=== PATIENT | male | born 1940 | race Caucasian/White ===

== ENCOUNTER → 2020-11-10 09:04 | Outpatient (CLI) | payer OTHER, SELFPAY ==
[2020-11-10 10:36] LABS: BUN Creatinine Ratio 21.7 (6-22); Blood Urea Nitrogen 31 mg/dL (9-20); Calcium 9.9 mg/dL (8.4-10.2); Carbon Dioxide 35 mmol/L (22-32); Chloride 101 mmol/L (98-107); Estimated Glomerular Filt Rate 47.6 mL/min (>60); Glucose 96 mg/dL (80-110); HEMOLYSIS < 15 (0-50); Potassium 4.7 mmol/L (3.4-5.1); Sodium 137 mmol/L (137-145)
[2020-11-10 10:39] LABS: NT-proBNP (BNP-Adult 18+) 3320 pg/mL (<450)
== END ==
PROVIDERS: Referring Provider Internal Medicine Cardiovascular Disease; Visit Provider Internal Medicine Cardiovascular Disease
DX: R06.02 Shortness of breath (principal); Z79.899 Other long term (current) drug therapy; I48.91 Unspecified atrial fibrillation
CPT/HCPCS: 36415; 80048; 83880

== ENCOUNTER → 2021-01-26 15:58 | Outpatient (CLI) | payer MEDICARE, SELFPAY ==
--- NOTE | 2021-01-26 | DI.ECHO.S_ITS ---
[place] +---------+ [facility] +---------+ : : [address] : : : : [address] : : : : Phone: [phone]+ Echocardiogram Report + + :Name: DALIA ORDONEZ Study Date: 01/26/2021 Height: 70 in : :[facility] ReadingLocation: Weight: 180 lb : : Gender: Male BSA: 2.0 m2 : :: 1940 Age: 80 yrs BP: 167/88 mmHg: :Reason For Study: ATRIAL FIBRILLATION : :Ordering Physician: DARIA, : :ANGEL Performed By: Carmela Srivastava : :Referring: ANGEL HUFF : + + Interpretation Summary Mild concentric left ventricular hypertrophy with ejection fraction 55-60%. Severe biatrial enlargement. Mild aortic valve sclerosis. Mild to moderate aortic regurgitation. Mild to moderate mitral regurgitation. Moderate to severe tricuspid regurgitation. The right ventricular systolic pressure is estimated to be at least 91 mmHg based on an estimated right atrial pressure of 15 mm Hg. Severe pulmonary hypertension. Mildly enlarged ascending aorta. Procedure: A two-dimensional transthoracic echocardiogram with color flow and Doppler was performed. The study quality was technically adequate. There is no prior echocardiogram noted for this patient. The heart rate ranged between 55-72 bpm during the study. Left Ventricle: The left ventricle is normal in size. There is mild concentric left ventricular hypertrophy. The ejection fraction is estimated to be 55-60%. There are no focal wall motion abnormalities. Diastolic function could not be accurately assessed due to confounding valvular disease. Right Ventricle: The right ventricle is normal in size and function. Atria: There is severe biatrial enlargement. There is no Doppler evidence for an interatrial shunt. Mitral Valve: Flail mitral valve chorde. The mitral valve leaflets appear borderline thickened, but open well. There is mild to moderate mitral regurgitation. Aortic Valve: The aortic valve is trileaflet. There is mild aortic valve sclerosis. The aortic valve is slightly calcified. There is no aortic valve stenosis. There is mild to moderate aortic regurgitation. Tricuspid Valve: The tricuspid valve leaflets are thin and pliable. There is moderate to severe tricuspid regurgitation. The right ventricular systolic pressure is estimated to be at least 91 mmHg based on an estimated right atrial pressure of 15 mm Hg. There is severe pulmonary hypertension. Pulmonic Valve: The pulmonic valve leaflets are thin and pliable; valve motion is normal. There is mild pulmonic regurgitation. Great Vessels: The aortic root is normal size. The ascending aorta is mildly enlarged. The IVC is dilated (diameter is greater than 2.1 cm) yet it collapses greater than 50% with a sniff. This suggests a right atrial pressure of 8 mm Hg. Pericardium/ Pleura There is no pericardial effusion. There is no pleural effusion. MMode/2D Measurements & Calculations LVIDd: 5.6 cm LVOT diam: 2.3 cm LVIDs: 4.1 cm Ao root diam: 3.6 cm FS: 26.6 % asc Aorta Diam: 3.6 cm IVSd: 1.3 cm Ao Arch Diam (Prox Trans): 2.4 cm LVPWd: 1.2 cm LV ugarte. diameter/BSA (cm/m^2): 2.8 LV sys. diameter/BSA (cm/m^2): 2.1 LA A2 area: 30.3 cm2 RA long axis: 6.7 cm LA A4 area: 33.4 cm2 RA area: 30.3 cm2 LA length (vol): 6.9 cm RA vol: 115.8 ml LA vol: 125.2 ml RA : 58.0 ml/m2 LA vol index: 62.8 ml/m2 IVC diam: 2.3 cm RVD1 (basal): 3.9 cm TAPSE: 1.9 cm Doppler Measurements & Calculations Ao V2 max: 144.7 cm/sec LVOT Max Yfn: 82.2 cm/sec Ao V2 mean: 97.1 cm/sec LV V1 max P.7 mmHg Ao max P.4 mmHg LV V1 VTI: 19.6 cm Ao mean P.3 mmHg SCOOTER(I,D): 2.5 cm2 Ao V2 VTI: 33.6 cm SCOOTER(V,D): 2.4 cm2 sev ratio: 0.58 SCOOTER indexed to BSA (cm^2/m^2): 1.2 AI P1/2t: 486.0 msec AI dec slope: 235.3 cm/sec2 MV E max yfn: 120.3 cm/sec TR max yfn: 436.2 cm/sec MV A max yfn: 1.6 cm/sec TR max P.1 mmHg MV E/A: 75.7 PA pr(Accel): 48.2 mmHg Med Peak E' Yfn: 6.3 cm/sec E/E' med: 19.0 Lat Peak E' Yfn: 8.6 cm/sec E/E' lat: 14.0 E/e' average: 16.5 MV dec time: 0.18 sec [facility] 82.8 ml Electronically signed by: Aixa Washburn on Reading Physician:01/27/2021 12:25 PM
== END ==
PROVIDERS: PCP Family Medicine; Referring Provider Internal Medicine Cardiovascular Disease; Visit Provider Internal Medicine Cardiovascular Disease
DX: I08.3 Combined rheumatic disorders of mitral, aortic and tricuspid valves (principal); I77.89 Other specified disorders of arteries and arterioles; I48.91 Unspecified atrial fibrillation
CPT/HCPCS: 93306

== ENCOUNTER → 2021-02-02 09:20 | Outpatient (CLI) | payer MEDICARE, SELFPAY ==
[2021-02-02 11:13] LABS: COVID-19 CEPHEID PCR (VTM/NP) Negative (Negative)
== END ==
PROVIDERS: PCP Family Medicine; Visit Provider Nurse Practitioner
DX: Z20.822 Contact with and (suspected) exposure to COVID-19 (principal)
CPT/HCPCS: C9803; U0003

== ENCOUNTER → 2021-02-09 08:16 | Outpatient (CLI) | payer MEDICARE, SELFPAY ==
[2021-02-09 09:10] LABS: Alanine Aminotransferase 36 IU/L (<50); Albumin 4.1 g/dL (3.5-5.0); Albumin Globulin Ratio 1.2 (1.0-2.8); Alkaline Phosphatase 82 U/L (38-126); Aspartate Aminotransferase 50 IU/L (17-59); BUN Creatinine Ratio 29.6 (6-22); Bilirubin Total 0.7 mg/dL (0.2-1.3); Blood Urea Nitrogen 34 mg/dL (9-20); Calcium 9.9 mg/dL (8.4-10.2); Carbon Dioxide 27 mmol/L (22-32); Chloride 105 mmol/L (98-107); Cholesterol 110 mg/dL (140-199); Estimated Glomerular Filt Rate > 60.0 mL/min (>60); Globulin 3.3 g/dL (1.7-4.1); Glucose 105 mg/dL (80-110); HDL Cholesterol 49 mg/dL (40-60); HEMOLYSIS < 15 (0-50); LDL Cholesterol Calculated 44 mg/dL (<100); Potassium 5.3 mmol/L (3.4-5.1); Sodium 136 mmol/L (137-145); Total Protein 7.4 g/dL (6.3-8.2); Triglycerides 86 mg/dL (35-150)
== END ==
PROVIDERS: PCP Family Medicine; Referring Provider Family Medicine; Visit Provider Family Medicine
DX: N18.31 Chronic kidney disease, stage 3a (principal); E78.5 Hyperlipidemia, unspecified
CPT/HCPCS: 36415; 80053; 80061

== ENCOUNTER → 2021-03-20 11:26 | Outpatient (CLI) | payer MEDICARE, SELFPAY ==
[2021-03-20 14:08] LABS: COVID19 -Nasal RAPID Negative (Negative)
== END ==
PROVIDERS: PCP Family Medicine; Visit Provider Nurse Practitioner
DX: Z20.822 Contact with and (suspected) exposure to COVID-19 (principal)
CPT/HCPCS: 87635; C9803

== ENCOUNTER → 2021-04-08 09:36 | Outpatient (CLI) | payer MEDICARE, SELFPAY ==
[2021-04-08 11:08] LABS: COVID19 -Nasal RAPID Negative (Negative)
== END ==
PROVIDERS: PCP Family Medicine; Visit Provider Nurse Practitioner
DX: Z20.822 Contact with and (suspected) exposure to COVID-19 (principal); Z01.812 Encounter for preprocedural laboratory examination
CPT/HCPCS: 87635; C9803

== ENCOUNTER → 2021-09-18 10:19 | Outpatient (CLI) | payer MEDICARE, SELFPAY | PROVIDERS: PCP Family Medicine; Referring Provider Physician Assistant Medical; Visit Provider Physician Assistant Medical | DX: I48.19 Other persistent atrial fibrillation (principal) | CPT/HCPCS: 36415; 80151 ==

== ENCOUNTER → 2021-10-09 13:44 | Outpatient (CLI) | payer MEDICARE, SELFPAY | PROVIDERS: PCP Family Medicine; Visit Provider Family Medicine | DX: L03.115 Cellulitis of right lower limb (principal); L98.499 Non-pressure chronic ulcer of skin of other sites with unspecified severity | CPT/HCPCS: 87070; 87077; 87186; 87205 ==

== ENCOUNTER → 2021-10-19 10:17 | Outpatient (CLI) | payer MEDICARE, SELFPAY | PROVIDERS: Family Provider Family Medicine; PCP Family Medicine; Referring Provider Family Medicine; Visit Provider Family Medicine | DX: I87.2 Venous insufficiency (chronic) (peripheral) (principal); L97.212 Non-pressure chronic ulcer of right calf with fat layer exposed; R60.0 Localized edema; Z79.01 Long term (current) use of anticoagulants; I73.9 Peripheral vascular disease, unspecified; S80.11XS Contusion of right lower leg, sequela | CPT/HCPCS: 11042; 93922; 99204; 99213 ==

== ENCOUNTER → 2021-10-27 09:05 | Outpatient (CLI) | payer MEDICARE, SELFPAY | PROVIDERS: Family Provider Family Medicine; PCP Family Medicine; Referring Provider Family Medicine; Visit Provider Family Medicine | DX: I73.9 Peripheral vascular disease, unspecified (principal); I87.2 Venous insufficiency (chronic) (peripheral); L97.212 Non-pressure chronic ulcer of right calf with fat layer exposed; S80.11XS Contusion of right lower leg, sequela; R60.0 Localized edema; I48.91 Unspecified atrial fibrillation; Z79.01 Long term (current) use of anticoagulants | CPT/HCPCS: 11042 ==

== ENCOUNTER → 2021-11-03 15:23 | Outpatient (CLI) | payer MEDICARE, SELFPAY | PROVIDERS: Family Provider Family Medicine; PCP Family Medicine; Referring Provider Family Medicine; Visit Provider Family Medicine | DX: I87.2 Venous insufficiency (chronic) (peripheral) (principal); I70.232 Atherosclerosis of native arteries of right leg with ulceration of calf; L97.212 Non-pressure chronic ulcer of right calf with fat layer exposed; R60.0 Localized edema; I48.91 Unspecified atrial fibrillation; Z79.01 Long term (current) use of anticoagulants | CPT/HCPCS: 11042; 99213 ==

== ENCOUNTER → 2021-11-05 09:34 | Outpatient (CLI) | payer MEDICARE, SELFPAY ==
--- NOTE | 2021-11-05 10:43 | DI.NM.S_ITS ---
PROCEDURE: DE MAGNOLIA PERF SPECT REST & STR Rest and exercise myocardial perfusion SPECT with gated imaging and ejection fraction RADIOPHARMACEUTICAL: 11.0 mCi Tc-99m sestamibi IV at rest and 26.1 mCi Tc- 99m sestamibi IV at peak exercise. A one day-protocol was performed. INDICATIONS: Afib TECHNIQUE: Radiopharmaceutical was injected at peak stress test, and also at rest. SPECT images were obtained. SPECT myocardial perfusion images were displayed in short axis, horizontal long axis, and vertical long axis views. Gated images were reviewed using Tapvalue software. COMPARISON: None. CARDIAC STRESS: A pharmaceutical nuclear stress test was performed using lexiscan 0.4mg IV X1. Symptoms: Patient had non-diagnostic chest pain during the study. EKG: Resting ECG showed AFib with ventricular pacing. ECG non-diagnostic with lexiscan due to the baseline ventricular pacing. FINDINGS: Raw data: There is good myocardial labeling by radiotracer. No significant motion artifacts. Kmsu-jk-etzwc ratio is 0.28 (normal is less than 0.38 for sestamibi tracer, and less than 0.50 for thallium tracer). Left ventricle function: Gated images demonstrate paradoxical motion of the apical septum, the apex, and apical inferior wall. No transient ischemic dilation; TID is 1.02 (normal less than 1.3). The left ventricle resting end-diastolic volume is 155 mL. Left ventricle stress ejection fraction is 32%; normal values are above 45%. Continued Report - Page 2 of 2 PATIENT NAME: DALIA ORDONEZ : 1940 EXAM DATE: 11/05/2021 10:43 [address]D. DRAnsatasiya: JAC SHORT CC: MODALITY: DE PATIENT TYPE: Out CONTRAST MEDIA: STATION ID: [id number] FLUORO TIME: Myocardial perfusion: There is a moderately intense defect in the apex, basal to mid inferior, and basal to mid lateral wall that improves significantly with stress, suggesting artifacts but old non-transmural infarction can?t be excluded. No prone images done as patient unable to prone. IMPRESSION: Equivocal pharmaceutical nuclear stress test consistent with artifact but old non-transmural infarction can?t be definitively excluded. No ischemia. 1) There is a moderately intense defect in the apex, basal to mid inferior, and basal to mid lateral wall that improves significantly with stress, suggesting artifacts but old non-transmural infarction can?t be excluded. No prone images done as patient unable to prone. 2) Enlarged left ventricle (LVEDV 155cc at rest) with moderately reduced systolic function (EF 32% post stress). Paradoxical motion of the apical septum, the apex, and apical inferior wall. 3) Non-diagnostic chest pain with lexiscan. 4) ECG non-diagnostic due to baseline ventricular pacing. 5) No prior nuclear stress test available for comparison. Dictated by: Robe Kaplan MD on 11/06/2021 at 13:10 Approved by: Robe Kaplan MD on 11/06/2021 at 13:17
== END ==
PROVIDERS: Family Provider Family Medicine; PCP Family Medicine; Referring Provider Physician Assistant Medical; Visit Provider Physician Assistant Medical
DX: I48.91 Unspecified atrial fibrillation (principal); R07.9 Chest pain, unspecified
CPT/HCPCS: 78452; 93017; A9502

== ENCOUNTER → 2021-11-09 09:03 | Outpatient (CLI) | payer MEDICARE, SELFPAY ==
--- NOTE | 2021-11-09 | DI.ECHO.S_ITS ---
[facility] +---------+ [facility] +---------+ : : [address] : : : : [address] : : : : Phone: [phone] +---------+ Echocardiogram Report + + :Name: DALIA ORDONEZ Study Date: 11/09/2021 Height: 70 in : :[facility] ReadingLocation: Weight: 180 lb : : Gender: Male BSA: 2.0 m2 : :: 1940 Age: 81 yrs BP: 121/82 mmHg: :Reason For Study: Atrial fibrillation : :Ordering Physician: DARIUS, : :JAC Performed By: Hank Steen : :Referring: JAC MCCOY : + + Interpretation Summary Limited Echo: 1) Normal left ventricular size with moderately reduced systolic function (EF 35-40%). 2) Normal right ventricular size with mildly reduced function. 3) Severe biatrial enlargement. 4) compared to the Echo done 01/26/2021, LVEF has decreased from normal to moderately reduced on this study. Procedure: A two-dimensional transthoracic echocardiogram with color flow and Doppler was performed in limited views only. The study quality was technically adequate. Comparison is made with the echocardiogram of 01/26/2021. The patient was in atrial fibrillation with heart rates between 98-138 bpm during the exam. Left Ventricle: The left ventricle is normal in size. There is mild concentric left ventricular hypertrophy. Left ventricular systolic function is moderately reduced. The ejection fraction is estimated to be 35-40%. There is moderate global hypokinesis of the left ventricle. Right Ventricle: The right ventricle is normal size. Right ventricular systolic function is mildly reduced. Atria: Both atria are severely dilated. Great Vessels: The IVC is dilated (diameter is greater than 2.1 cm) yet it collapses greater than 50% with a sniff. This suggests a right atrial pressure of 8 mm Hg. Pericardium/ Pleura There is a small pericardial effusion noted. MMode/2D Measurements & Calculations LVIDd: 5.6 cm LA dimension: 4.9 cm LVIDs: 4.6 cm LA A2 area: 28.9 cm2 FS: 17.9 % LA A4 area: 33.4 cm2 IVSd: 1.2 cm LA length (vol): 6.9 cm LVPWd: 1.2 cm LA vol: 118.7 ml LV ugarte. diameter/BSA (cm/m^2): 2.8 LA vol index: 59.5 ml/m2 LV sys. diameter/BSA (cm/m^2): 2.3 RA long axis: 7.4 cm LVLs ap4: 8.0 cm IVC diam: 2.3 cm LVLd ap2: 8.1 cm TAPSE_phl: 1.4 cm LVLs ap2: 7.5 cm Reading Physician:12:59 PM
== END ==
PROVIDERS: Family Provider Family Medicine; PCP Family Medicine; Referring Provider Physician Assistant Medical; Visit Provider Physician Assistant Medical
DX: I48.91 Unspecified atrial fibrillation (principal); I31.3 Pericardial effusion (noninflammatory)
CPT/HCPCS: 93307

== ENCOUNTER → 2021-11-10 08:56 | Outpatient (CLI) | payer MEDICARE, SELFPAY | PROVIDERS: Family Provider Family Medicine; PCP Family Medicine; Referring Provider Family Medicine; Visit Provider Family Medicine | DX: I87.2 Venous insufficiency (chronic) (peripheral) (principal); I70.232 Atherosclerosis of native arteries of right leg with ulceration of calf; L97.212 Non-pressure chronic ulcer of right calf with fat layer exposed; S80.11XS Contusion of right lower leg, sequela; R60.0 Localized edema; I48.91 Unspecified atrial fibrillation; Z79.01 Long term (current) use of anticoagulants | CPT/HCPCS: 11042; 93923 ==

== ENCOUNTER → 2021-11-11 09:09 | Outpatient (CLI) | payer MEDICARE, SELFPAY ==
[2021-11-11 10:08] LABS: Alanine Aminotransferase 17 IU/L (<50); Albumin 4.1 g/dL (3.5-5.0); Albumin Globulin Ratio 1.2 (1.0-2.8); Alkaline Phosphatase 68 U/L (38-126); Aspartate Aminotransferase 30 IU/L (17-59); BUN Creatinine Ratio 24.2 (6-22); Bilirubin Total 0.7 mg/dL (0.2-1.3); Blood Urea Nitrogen 30 mg/dL (9-20); Calcium 9.2 mg/dL (8.4-10.2); Carbon Dioxide 31 mmol/L (22-32); Chloride 101 mmol/L (98-107); Estimated Glomerular Filt Rate 58 mL/min (>60); Globulin 3.5 g/dL (1.7-4.1); Glucose 92 mg/dL (80-110); HEMOLYSIS < 15 (0-50); Magnesium 2.2 mg/dL (1.6-2.3); Potassium 4.3 mmol/L (3.4-5.1); Sodium 138 mmol/L (137-145); Total Protein 7.6 g/dL (6.3-8.2)
== END ==
PROVIDERS: Family Provider Family Medicine; PCP Family Medicine; Referring Provider Physician Assistant Medical; Visit Provider Physician Assistant Medical
DX: I48.19 Other persistent atrial fibrillation (principal)
CPT/HCPCS: 36415; 80053; 83735

== ENCOUNTER → 2021-11-12 15:28 | Outpatient (CLI) | payer MEDICARE, SELFPAY | PROVIDERS: Family Provider Family Medicine; PCP Family Medicine; Referring Provider Family Medicine; Visit Provider Family Medicine | DX: I87.2 Venous insufficiency (chronic) (peripheral) (principal); L97.212 Non-pressure chronic ulcer of right calf with fat layer exposed | CPT/HCPCS: 99213 ==

== ENCOUNTER → 2021-11-24 08:13 | Outpatient (CLI) | payer MEDICARE, SELFPAY ==
[2021-11-24 09:54] LABS: Add Manual Diff / Slide Review NO; Basophils Absolute Auto 0 /uL (0-100); Basophils Percent Auto 0.6 % (0-2); Eosinophils Absolute Auto 100 /uL (0-450); Eosinophils Percent Auto 1.4 % (2-4); Hematocrit 35.9 % (41-53); Hemoglobin 11.7 g/dL (13.5-17.5); Lymphocytes Absolute Auto 1300 /uL (1100-4500); Lymphocytes Percent Auto 19.1 % (25-40); Mean Corpuscular HGB Conc 32.6 % (30-36); Mean Corpuscular Hemoglobin 27.1 PG (26-34); Mean Corpuscular Volume 83.1 fL (80-100); Monocytes Absolute Auto 800 /uL (0-900); Monocytes Percent Auto 11.3 % (3-14); Neutrophils Absolute Auto 4700 /uL (1500-7000); Neutrophils Percent Auto 67.6 % (50-75); Platelet Count 229 X10^3/uL (150-400); Red Blood Cell Count 4.32 X10^6/uL (4.5-5.9); Red Cell Distribution Width 16.9 % (11.6-14.8)
[2021-11-24 10:10] LABS: Alanine Aminotransferase 15 IU/L (<50); Albumin 4.3 g/dL (3.5-5.0); Albumin Globulin Ratio 1.3 (1.0-2.8); Alkaline Phosphatase 72 U/L (38-126); Aspartate Aminotransferase 32 IU/L (17-59); BUN Creatinine Ratio 27.9 (6-22); Bilirubin Total 0.7 mg/dL (0.2-1.3); Blood Urea Nitrogen 36 mg/dL (9-20); Calcium 9.3 mg/dL (8.4-10.2); Carbon Dioxide 33 mmol/L (22-32); Chloride 97 mmol/L (98-107); Cholesterol 110 mg/dL (140-199); Estimated Glomerular Filt Rate 56 mL/min (>60); Globulin 3.3 g/dL (1.7-4.1); Glucose 102 mg/dL (80-110); HDL Cholesterol 58 mg/dL (40-60); HEMOLYSIS < 15 (0-50); LDL Cholesterol Calculated 36 mg/dL (<100); Potassium 4.2 mmol/L (3.4-5.1); Sodium 138 mmol/L (137-145); Total Protein 7.6 g/dL (6.3-8.2); Triglycerides 78 mg/dL (35-150)
[2021-11-24 10:51] LABS: Creatinine Urine Random 150.5 mg/dL
[2021-11-24 11:12] LABS: Microalbumi Creatinin Ratio Ur 217.9 ug/mg CR (<30); Microalbumin Urine Random 32.8 mg/dL (0-1.6)
[2021-11-24 11:21] LABS: TSH w/ Reflex to FT4 1.98 uIU/mL (0.47-4.68)
== END ==
PROVIDERS: Family Provider Family Medicine; PCP Family Medicine; Referring Provider Physician Assistant Medical; Visit Provider Physician Assistant Medical
DX: I48.19 Other persistent atrial fibrillation (principal); E05.90 Thyrotoxicosis, unspecified without thyrotoxic crisis or storm; E78.2 Mixed hyperlipidemia; I10 Essential (primary) hypertension; I48.91 Unspecified atrial fibrillation
CPT/HCPCS: 36415; 80053; 80061; 82043; 82570; 84443; 85025

== ENCOUNTER → 2021-12-31 08:26 | Outpatient (CLI) | payer MEDICARE, SELFPAY ==
[2021-12-31 09:01] LABS: Add Manual Diff / Slide Review NO; Basophils Absolute Auto 100 /uL (0-100); Basophils Percent Auto 0.8 % (0-2); Eosinophils Absolute Auto 100 /uL (0-450); Hematocrit 35.8 % (41-53); Hemoglobin 11.4 g/dL (13.5-17.5); Lymphocytes Absolute Auto 1600 /uL (1100-4500); Lymphocytes Percent Auto 22.6 % (25-40); Mean Corpuscular Hemoglobin 26.6 PG (26-34); Mean Corpuscular Volume 83.1 fL (80-100); Monocytes Absolute Auto 600 /uL (0-900); Monocytes Percent Auto 8.5 % (3-14); Neutrophils Absolute Auto 4700 /uL (1500-7000); Neutrophils Percent Auto 67.1 % (50-75); Platelet Count 234 X10^3/uL (150-400); Red Blood Cell Count 4.31 X10^6/uL (4.5-5.9); White Blood Cell Count 7.1 X10^3/uL (4.5-11.0)
[2021-12-31 09:40] LABS: BUN Creatinine Ratio 24.2 (6-22); Blood Urea Nitrogen 30 mg/dL (9-20); Calcium 9.1 mg/dL (8.4-10.2); Carbon Dioxide 28 mmol/L (22-32); Chloride 98 mmol/L (98-107); Estimated Glomerular Filt Rate 58 mL/min (>60); Glucose 158 mg/dL (80-110); HEMOLYSIS < 15 (0-50); Potassium 4.3 mmol/L (3.4-5.1); Sodium 138 mmol/L (137-145)
== END ==
PROVIDERS: Family Provider Family Medicine; PCP Family Medicine; Referring Provider Physician Assistant Medical; Visit Provider Physician Assistant Medical
DX: I47.1 Supraventricular tachycardia (principal)
CPT/HCPCS: 36415; 80048; 85025

== ENCOUNTER → 2022-01-14 08:36 | Outpatient (CLI) | payer MEDICARE, SELFPAY | PROVIDERS: Family Provider Family Medicine; PCP Family Medicine; Referring Provider Family Medicine; Visit Provider Family Medicine | DX: I87.2 Venous insufficiency (chronic) (peripheral) (principal); L97.212 Non-pressure chronic ulcer of right calf with fat layer exposed; R60.0 Localized edema; Z79.01 Long term (current) use of anticoagulants; Z86.73 Personal history of transient ischemic attack (TIA), and cerebral infarction without residual deficits; Z95.0 Presence of cardiac pacemaker; I48.91 Unspecified atrial fibrillation; I73.9 Peripheral vascular disease, unspecified; I65.29 Occlusion and stenosis of unspecified carotid artery | CPT/HCPCS: 11042; 87070; 87075; 87077; 87147; 87186; 87205; 99213 ==

== ENCOUNTER → 2022-01-21 12:02 | Outpatient (CLI) | payer MEDICARE, SELFPAY | PROVIDERS: Family Provider Family Medicine; PCP Family Medicine; Referring Provider Family Medicine; Visit Provider Family Medicine | DX: I87.2 Venous insufficiency (chronic) (peripheral) (principal); L97.212 Non-pressure chronic ulcer of right calf with fat layer exposed; L92.8 Other granulomatous disorders of the skin and subcutaneous tissue; R60.0 Localized edema | CPT/HCPCS: 97602 ==

== ENCOUNTER → 2022-01-28 15:59 | Outpatient (CLI) | payer MEDICARE, SELFPAY | PROVIDERS: Family Provider Family Medicine; PCP Family Medicine; Referring Provider Family Medicine; Visit Provider Family Medicine | DX: I87.2 Venous insufficiency (chronic) (peripheral) (principal); L97.212 Non-pressure chronic ulcer of right calf with fat layer exposed; Z79.01 Long term (current) use of anticoagulants; I73.9 Peripheral vascular disease, unspecified; B95.61 Methicillin susceptible Staphylococcus aureus infection as the cause of diseases classified elsewhere | CPT/HCPCS: 99212; 99213 ==

== ENCOUNTER → 2022-02-11 09:02 | Outpatient (CLI) | payer MEDICARE, SELFPAY | PROVIDERS: Family Provider Family Medicine; PCP Family Medicine; Referring Provider Family Medicine; Visit Provider Family Medicine | DX: I87.2 Venous insufficiency (chronic) (peripheral) (principal); I73.9 Peripheral vascular disease, unspecified; R60.0 Localized edema; Z79.01 Long term (current) use of anticoagulants | CPT/HCPCS: 99212; 99213 ==

== ENCOUNTER → 2022-02-23 09:08 | Outpatient (CLI) | payer MEDICARE, SELFPAY ==
[2022-02-23 10:20] LABS: COVID19 -Nasal RAPID Negative (Negative)
== END ==
PROVIDERS: Family Provider Family Medicine; PCP Family Medicine; Visit Provider Surgery
DX: Z20.822 Contact with and (suspected) exposure to COVID-19 (principal); Z01.812 Encounter for preprocedural laboratory examination
CPT/HCPCS: 87635; C9803

== ENCOUNTER 2022-02-24 08:21 | Day surgery (SDC) | payer MEDICARE, SELFPAY ==
--- NOTE | 2022-02-24 | PATH_ITS ---
[facility] Accession Number: [id number] No. of containers..05 Tissue . 01 Material submitted: . PART A: OTHER - APPENDICEAL ORIFICE PART B: colon - ASCENDING COLON POLYP PART C: colon - TRANSVERSE COLON POLYP PART D: colon - SIGMOID COLON POLYP PART E: rectum - BIOPSY OF RECTAL MASS @ 10 CM . 01 Diagnosis: A. Appendiceal Orifice, Biopsy: Colonic mucosa with submucosal mature adipose tissue, a few small benign lymphoid aggregates and changes suggestive of mucosal prolapse. Negative for dysplasia and malignancy. . B. Ascending Colon, Polyp, Biopsy: Benign lymphoid aggregate. . C. Transverse Colon, Polyp, Biopsy: Serrated lesion, favor sessile serrated adenoma. . D. Sigmoid Colon, Polyp, Biopsy: Tubular adenoma. . E. Rectum, Mass at 10 cm, Biopsy: Invasive adenocarcinoma, moderately differentiated. Please see comment. [facility] 03/08/2022 1145 Local . 01 Comment: E. The rectal mass biopsies show an invasive adenocarcinoma arising in a background of high-grade dysplasia. Lymphovascular invasion is not identified. As part of routine cloth tester quality, Dr. Marley also reviewed part E of this case and agrees with the interpretation. Mismatch repair IHC will be performed and the results reported as an addendum. Dr. Woodward discussed results with Maria Isabel in Dr. Bustos's office on 03/08/2022. . . 01 Electronically signed: . Claudia Woodward MD, Pathologist NPI- [id number] . 01 Gross description: . A. Received in formalin labeled with the patient's name and ascending polyp (the requisition states biopsy, appendiceal orifice) consists of a single irregular kaiser soft tissue fragment measuring 0.4 cm in greatest dimension. Submitted entirely in cassette A1. B. Received in formalin labeled with the patient's name and descending polyp (requisition state ascending polyp) consists of a single kaiser soft tissue fragment measuring 0.3 cm in greatest dimension. Submitted entirely in cassette B1. C. Received in formalin labeled with the patient's name and transverse colon polyp consists of an irregular kaiser soft tissue fragment measuring 0.3 cm in greatest dimension. Submitted entirely in cassette C1. D. Received in formalin labeled with the patient's name and sigmoid colon polyp consists of a single irregular kaiser soft tissue fragment measuring 0.5 cm in greatest dimension. Submitted entirely in cassette D1. E. Received in formalin labeled with the patient's name and biopsy rectal mass at 10 cm consists of eight irregular kaiser soft tissue fragments ranging from 0.1 to 0.5 cm in greatest dimension. Submitted entirely in cassette E1. ([id number]) /MRV 03/05/2022 1745 Local . 01 Pathologist provided ICD-10: K62.5, D12.3, D12.5, C20 . 01 CPT . 796532, 334046, 969276, 288617, 609317, [id number], [id number] Specimen Comment: A courtesy copy of this report has been sent to [phone] Performed at: 01 [facility] [address] [place] [address], [place], [place] [id number] MD Mike Barajas MD Phone: [phone]
[2022-02-24 08:40] VITALS: BP 153/76; PULSE 113; RESP 16; TEMP 36.1; O2SAT 98
[2022-02-24 08:49] VITALS: BMI 25.1
[2022-02-24] MEDS: LACTATED RINGERS 1,000 ML 84 ML IV (09:03)
--- NOTE | 2022-02-24 09:36 | P.HP_ITS ---
History of Present Illness History of Present Illness Chief complaint: [facility] Patient History Medical History (Updated 02/04/21 @ 13:31 by Jean More MD) Actinic keratosis Atrial fibrillation CKD (chronic kidney disease) stage 3, GFR 30-59 ml/min Hyperlipidemia Hypertension Hyperthyroidism Neoplasm of uncertain behavior of skin Family & Social History Social History: household members none Tobacco & Substance use: Smoking Status Former smoker alcohol intake current alcohol intake frequency 0-2 drinks per day Substance Use Type does not use Meds Home Medications and Allergies Home Medications Medication Instructions Recorded Confirmed Type apixaban 5 mg tablet (Eliquis) 5 mg PO BID 12/10/20 02/24/22 History lisinopril 2.5 mg tablet 2.5 mg PO DAILY #90 tabs 05/25/21 02/24/22 Rx rosuvastatin 40 mg tablet 40 mg PO DAILY #90 tabs 07/17/21 12/10/21 Rx furosemide 40 mg tablet See Rx Instructions .Route 07/20/21 12/10/21 Rx .COMPLEX #30 tabs metoprolol succinate 50 mg 75 mg PO BID 12/10/21 12/10/21 History tablet,extended release 24 hr sotalol 80 mg tablet 80 mg PO DAILY 12/10/21 12/10/21 History Allergies Allergy/AdvReac Type Severity Reaction Status Date / Time [place] nut Allergy Severe Swollen Verified 02/24/22 08:18 lips, contristed throat. Review of Systems Review of Systems Narrative: Negative Exam Vital Signs (past 8 hours): - 02/24/22 08:40 Temperature 97 F L Pulse Rate 113 H Respiratory Rate 16 Blood Pressure 153/76 H Pulse Oximetry 98 Oxygen Delivery Method Room Air Oxygen Delivery Method Room Air Narrative Exam Narrative: Awake alert and oriented x3, pupils equal round reactive to light, oropharynx clear, heart regular rate and rhythm, lungs clear to auscultation bilaterally, abdomen nontender and nondistended, extremities without edema, no gross neurologic deficits noted Assessment & Plan Assessment & Plan narrative: Rectal bleeding for colonoscopy today Time Spent With Patient Critical Care time: I spent a total of [] minutes of critical care time on this patient's care today; this time is exclusive of procedural time.
--- NOTE | 2022-02-24 10:19 | PM.OP.COLON ---
Operative Date/Time/Diagnoses Date of procedure: 02/24/22 Procedure & Clinicians Study performed: Colonoscopy with snare polypectomy and cold biopsy Indications: Rectal bleeding. History of advanced colonic adenoma. Last colonoscopy was about 5 years ago. Procedure Notes Procedure in detail: Prior to the procedure, history and physical was performed, and patient medications and allergies were reviewed. Preprocedure nursing history and assessment was reviewed. Patient identification and proposed procedure were verified by the physician and nurse in the procedure room. The physical status of the patient was reassessed after the procedure. After informed consent was obtained including risks, benefits, and alternatives, the scope was passed under direct vision. Throughout the procedure, the patient's blood pressure, pulse, and oxygen saturations were monitored continuously. The colonoscope was introduced through the anus and advanced to the cecum as identified by the appendiceal orifice and ileocecal valve. The patient tolerated the procedure well. Bowel prep was deemed adequate to detect polyps greater than 5 mm. Perianal and digital rectal examinations were unremarkable. Retroflexion in the rectum revealed grade 1 internal hemorrhoids. In the proximal rectum at 10 cm from the anal verge, a 3.5 cm firm, sessile malignant-appearing mass was encountered. This was biopsied. Numerous Medium size diverticula were noted throughout the entire colon. There was significant looping and marked tortuosity throughout the entire colon. Abdominal pressure and repositioning was required to advance the colonoscope to the cecum. At the appendiceal orifice, abnormal mucosa was noted. This was biopsied. In ascending colon a 2 cm sessile polyp was noted. This was removed and retrieved with a Jumbo forceps. A 5 mm sessile polyp in the transverse colon and a 5 mm sessile polyp in the sigmoid colon removed with a cold snare and retrieved. Impression: 3.5 cm mass noted in the proximal rectum at 10 cm from the anal verge. Biopsied Abnormal appearing mucosa at the appendiceal orifice. Biopsied 3 polyps measuring 2-5 mm in size removed from the ascending, transverse, and sigmoid colon Significant looping and colonic tortuosity encountered Pancolonic diverticulosis Internal hemorrhoids Complications: other (EBL minimal. No complications) Post-procedure Plan for aftercare: Follow-up pathology results Refer to colorectal surgeon Perform CT of the chest, abdomen and pelvis with IV contrast Resume home medications Restart apixaban tomorrow High-fiber diet Patient has a contact number available for emergencies. The signs and symptoms of potential delayed complications were discussed with the patient. Return to normal activities tomorrow. Written discharge instructions were provided to the patient. Discharge home with escort
[2022-02-24 10:25] VITALS: BP 101/56; PULSE 74; RESP 16; TEMP 36.5; O2SAT 95
[2022-02-24 10:29] VITALS: BP 100/61; PULSE 75; RESP 17; O2SAT 92
[2022-02-24 10:33] VITALS: PULSE 95; RESP 20; O2SAT 99
[2022-02-24 10:36] VITALS: BP 120/60; PULSE 74; RESP 18; O2SAT 97
[2022-02-24 10:44] VITALS: BP 128/67; PULSE 71; RESP 16; O2SAT 99
== END 2022-02-24 10:52 | disposition home or self-care (01) ==
PROVIDERS: Family Provider Family Medicine; PCP Family Medicine; Referring Provider Internal Medicine; Visit Provider Internal Medicine
PROC: 0DJD8ZZ Inspection of Lower Intestinal Tract, Via Natural or Artificial Opening Endoscopic (ICD-10-PCS; CPT 45378; principal; 2022-02-24 09:30)
DX: K62.5 Hemorrhage of anus and rectum (principal); K64.0 First degree hemorrhoids; K57.30 Diverticulosis of large intestine without perforation or abscess without bleeding; I48.91 Unspecified atrial fibrillation; I12.9 Hypertensive chronic kidney disease with stage 1 through stage 4 chronic kidney disease, or unspecified chronic kidney disease; N18.30 Chronic kidney disease, stage 3 unspecified; E05.90 Thyrotoxicosis, unspecified without thyrotoxic crisis or storm; E78.5 Hyperlipidemia, unspecified; I69.398 Other sequelae of cerebral infarction; H54.40 Blindness, one eye, unspecified eye; Z87.891 Personal history of nicotine dependence; D12.3 Benign neoplasm of transverse colon; D12.5 Benign neoplasm of sigmoid colon; C20 Malignant neoplasm of rectum
CPT/HCPCS: 45385; 45380; J2704

== ENCOUNTER → 2022-03-09 07:57 | Outpatient (CLI) | payer MEDICARE, SELFPAY ==
[2022-03-09 08:30] LABS: Blood Urea Nitrogen 33 mg/dL (9-20); Estimated Glomerular Filt Rate 59 mL/min (>60)
[2022-03-09 09:31] LABS: Add Manual Diff / Slide Review NO; Basophils Absolute Auto 0 /uL (0-100); Basophils Percent Auto 0.6 % (0-2); Eosinophils Absolute Auto 100 /uL (0-450); Eosinophils Percent Auto 1.7 % (2-4); Hematocrit 30.7 % (41-53); Hemoglobin 10.1 g/dL (13.5-17.5); Lymphocytes Absolute Auto 1700 /uL (1100-4500); Lymphocytes Percent Auto 24.6 % (25-40); Mean Corpuscular HGB Conc 32.8 % (30-36); Mean Corpuscular Hemoglobin 26.5 PG (26-34); Mean Corpuscular Volume 80.7 fL (80-100); Monocytes Absolute Auto 900 /uL (0-900); Monocytes Percent Auto 12.1 % (3-14); Neutrophils Absolute Auto 4300 /uL (1500-7000); Platelet Count 226 X10^3/uL (150-400); Red Blood Cell Count 3.81 X10^6/uL (4.5-5.9); Red Cell Distribution Width 16.3 % (11.6-14.8); White Blood Cell Count 7.1 X10^3/uL (4.5-11.0)
[2022-03-09 09:54] LABS: Alanine Aminotransferase 13 IU/L (<50); Albumin 4.2 g/dL (3.5-5.0); Albumin Globulin Ratio 1.1 (1.0-2.8); Alkaline Phosphatase 67 U/L (38-126); Aspartate Aminotransferase 28 IU/L (17-59); BUN Creatinine Ratio 29.3 (6-22); Bilirubin Total 0.7 mg/dL (0.2-1.3); Blood Urea Nitrogen 34 mg/dL (9-20); Calcium 9.5 mg/dL (8.4-10.2); Carbon Dioxide 29 mmol/L (22-32); Chloride 99 mmol/L (98-107); Estimated Glomerular Filt Rate > 60 mL/min (>60); Globulin 3.7 g/dL (1.7-4.1); Glucose 110 mg/dL (80-110); HEMOLYSIS < 15 (0-50); Potassium 5.3 mmol/L (3.4-5.1); Sodium 135 mmol/L (137-145); Total Protein 7.9 g/dL (6.3-8.2)
[2022-03-09 09:57] LABS: Creatinine Urine Random 152.5 mg/dL
[2022-03-09 10:13] LABS: Microalbumi Creatinin Ratio Ur 220.9 ug/mg CR (<30); Microalbumin Urine Random 33.7 mg/dL (0-1.6)
== END ==
PROVIDERS: Family Provider Family Medicine; PCP Family Medicine; Referring Provider Internal Medicine; Visit Provider Internal Medicine
DX: D64.9 Anemia, unspecified (principal); C20 Malignant neoplasm of rectum; K62.5 Hemorrhage of anus and rectum; E78.2 Mixed hyperlipidemia; I10 Essential (primary) hypertension; I48.91 Unspecified atrial fibrillation; N18.31 Chronic kidney disease, stage 3a
CPT/HCPCS: 36415; 80053; 82043; 82565; 82570; 84520; 85025

== ENCOUNTER → 2022-03-10 08:55 | Outpatient (CLI) | payer MEDICARE, SELFPAY ==
--- NOTE | 2022-03-10 08:57 | DI.CT.S_ITS ---
PROCEDURE: CT CHEST ABD PEL W CON INDICATIONS: Malignant neoplasm of rectum TECHNIQUE: After the administration of oral and intravenous contrast, axial sections acquired from the supraclavicular neck to the pubic symphysis. Coronal and sagittal reformats were performed. For radiation dose reduction, the following was used: automated exposure control, adjustment of mA and/or kV according to patient size. COMPARISON:None. FINDINGS: Image quality: Excellent. CHEST: Lower Neck: No enlarged lymph nodes. Thyroid: Within normal limits. Axillae: No enlarged lymph nodes. Chest Wall: Left chest wall pacemaker is seen with leads noted in right atrium and right ventricle. Lungs and Airways: Biapical scarring is seen. Wdgt-hb-lkzmzphm emphysematous changes are noted in bilateral lung fortune. 3 millimeters solid nodule in anterior right upper lobe near apex is seen series 3, image 87. 3 mm subpleural nodule in lateral right upper lobe is seen series 3, image 52. 4 mm pleural based solid nodule in posterior lateral right upper lobe series 3, image 56. 2 mm calcified granuloma in anterior right upper lobe series 3, image 58. 4 mm solid nodule in posterior lateral right upper lobe series 3, image 152. 4 mm solid nodule adjacent to right minor fissure in anterior aspect of right middle lobe series 3, image 185. 4-5 mm ground-glass density nodule in posterior aspect of left lower lobe series 3, image 177. Scattered scarring/atelectasis in posterior and lateral periphery of bilateral mid to lower lung fortune are seen. Central and peripheral airway is patent. Pleura: No pneumothorax or pleural effusions. Heart: Heart size is enlarged. No pericardial effusion. Thoracic Vessels: The aorta and pulmonary arteries demonstrate normal size. [id number]-sm-[id number] atherosclerotic calcifications are seen in coronary vessels and thoracic aorta. Mediastinum and Torri: No enlarged lymph nodes. Esophagus: No wall thickening. There is a small hiatal hernia. ABDOMEN: Liver: Liver is normal in size. 1.7 x 1.4 cm hypodense area involving left hepatic lobe is seen series 2, image 57 and measures 11 Hounsfield unit in density. 6 mm hypodense area is seen in more inferior aspect of left hepatic lobe lateral segment series 2, image 60. 6 mm hypodense area is also noted involving inferior right hepatic lobe series 2, image 73. Gallbladder: Unremarkable. Biliary ducts: Unremarkable. Pancreas: Unremarkable. Spleen: Unremarkable. Adrenal Glands: Unremarkable. Kidneys and Ureters: Bilateral kidneys show normal contrast enhancement. No hydronephrosis or hydroureter. Well-circumscribed hypodense areas in bilateral kidneys are seen and measures up to 4.1 x 2.9 cm in size in lower pole of right kidney and 7 Hounsfield unit in density likely represent renal cysts. Stomach and Bowel: There is no bowel obstruction. No stomach or small bowel wall thickening. No gross ascending, transverse or descending colon wall thickening. No gross sigmoid colon wall thickening. Circumferential rectal wall thickening is noted likely related to patient's clinical diagnosis of rectal cancer. No abscess collection. No significant mesenteric fat stranding. Peritoneum: No abnormal intraperitoneal fluid. No free air. Ventral Wall: No hernia. Abdominal Nodes: No retroperitoneal or mesenteric adenopathy by size criteria. Vessels: Aorta and inferior vena cava are normal in size. Wwng-su-atharftp atherosclerotic disease throughout abdominal aorta and bilateral iliac vessels are seen. PELVIS: Pelvic Organs: Mildly enlarged prostate gland is seen with mass effect on floor of urinary bladder.. Bladder: Unremarkable. Pelvic Nodes: No enlarged lymph nodes. Miscellaneous: Large left inguinal hernia is seen containing multiple colonic loops. Right inguinal hernia is also noted containing fat only. Bones: No suspicious bony lesion. No acute vertebral body compression fracture. IMPRESSION: 1. Suggestion of circumferential rectal wall thickening particularly along left side of rectum likely related to patient's recent diagnosis of rectal cancer. No other area of abnormal bowel wall thickening. No abscess collection. No free fluid or free air. 2. Well-circumscribed hypodense areas seen in right and left hepatic lobes as described above likely represent benign process such as hepatic cysts. Bilateral renal cysts. No abdominal or pelvic lymphadenopathy by size criteria. 3. Multiple tiny bilateral pulmonary nodules as described in detail above likely represent benign process. Early or small metastatic lung nodules cannot be entirely excluded. CT chest follow-up in 6-12 months is recommended for evaluation of stability. 4. No mediastinal or hilar lymphadenopathy by size criteria. Cardiomegaly with left chest wall pacemaker in place. No pericardial effusion. 5. Mild COPD. Bibasilar scattered atelectasis. No pleural effusion or pneumothorax. Airway is patent. 6. Bilateral renal cysts as above. No hydronephrosis. Mildly enlarged prostate gland with mild mass effect on floor of urinary bladder. Dictated by: Candido Rodriguez M.D. on 03/10/2022 at 16:30 Approved by: Candido Rodriguez M.D. on 03/10/2022 at 16:44
== END ==
PROVIDERS: Family Provider Family Medicine; PCP Family Medicine; Referring Provider Internal Medicine; Visit Provider Internal Medicine
DX: C20 Malignant neoplasm of rectum (principal); R93.2 Abnormal findings on diagnostic imaging of liver and biliary tract; R91.8 Other nonspecific abnormal finding of lung field; I51.7 Cardiomegaly; J44.9 Chronic obstructive pulmonary disease, unspecified; N28.1 Cyst of kidney, acquired
CPT/HCPCS: 71260; 74177; Q9967

== ENCOUNTER → 2022-03-30 08:11 | Outpatient (CLI) | payer MEDICARE, SELFPAY ==
[2022-03-30 09:43] LABS: Add Manual Diff / Slide Review NO; Basophils Absolute Auto 0 /uL (0-100); Basophils Percent Auto 0.5 % (0-2); Eosinophils Absolute Auto 100 /uL (0-450); Eosinophils Percent Auto 1.1 % (2-4); Hematocrit 28.4 % (41-53); Hemoglobin 9.1 g/dL (13.5-17.5); Lymphocytes Absolute Auto 1800 /uL (1100-4500); Lymphocytes Percent Auto 21.3 % (25-40); Mean Corpuscular HGB Conc 31.9 % (30-36); Mean Corpuscular Hemoglobin 25.4 PG (26-34); Mean Corpuscular Volume 79.7 fL (80-100); Monocytes Absolute Auto 1000 /uL (0-900); Monocytes Percent Auto 11.7 % (3-14); Neutrophils Absolute Auto 5400 /uL (1500-7000); Neutrophils Percent Auto 65.4 % (50-75); Platelet Count 245 X10^3/uL (150-400); Red Blood Cell Count 3.56 X10^6/uL (4.5-5.9); Red Cell Distribution Width 16.2 % (11.6-14.8); White Blood Cell Count 8.3 X10^3/uL (4.5-11.0)
[2022-03-30 10:13] LABS: HEMOLYSIS < 15 (0-50); Sodium 138 mmol/L (137-145)
[2022-03-30 10:14] LABS: Alanine Aminotransferase 11 IU/L (<50); Albumin 4.1 g/dL (3.5-5.0); Albumin Globulin Ratio 1.1 (1.0-2.8); Alkaline Phosphatase 67 U/L (38-126); Aspartate Aminotransferase 27 IU/L (17-59); BUN Creatinine Ratio 20.5 (6-22); Bilirubin Total 0.6 mg/dL (0.2-1.3); Blood Urea Nitrogen 24 mg/dL (9-20); Calcium 9.3 mg/dL (8.4-10.2); Carbon Dioxide 31 mmol/L (22-32); Chloride 98 mmol/L (98-107); Estimated Glomerular Filt Rate > 60 mL/min (>60); Globulin 3.6 g/dL (1.7-4.1); Glucose 121 mg/dL (80-110); Potassium 4.3 mmol/L (3.4-5.1); Total Protein 7.7 g/dL (6.3-8.2)
[2022-03-30 10:59] LABS: Creatinine Urine Random 176.5 mg/dL
[2022-03-30 11:40] LABS: Microalbumin Urine Random 142.1 mg/dL (0-1.6)
== END ==
PROVIDERS: Family Provider Family Medicine; PCP Family Medicine; Referring Provider Nurse Practitioner Acute Care; Visit Provider Nurse Practitioner Acute Care
DX: I48.19 Other persistent atrial fibrillation (principal); C20 Malignant neoplasm of rectum; E87.5 Hyperkalemia; I10 Essential (primary) hypertension; I48.91 Unspecified atrial fibrillation; N18.31 Chronic kidney disease, stage 3a; R80.9 Proteinuria, unspecified
CPT/HCPCS: 36415; 80053; 82043; 82570; 85025

== ENCOUNTER → 2022-04-03 09:34 | Outpatient (CLI) | payer MEDICARE, SELFPAY ==
--- NOTE | 2022-04-03 | DI.RAD.S_ITS ---
PROCEDURE: XR CHEST 2V INDICATIONS: Malignant neoplasm of rectum TECHNIQUE: 2 views of the chest were acquired. COMPARISON: [facility], CR, XR CHEST 2 VIEWS, 04/10/2021, 17:15. [facility], CR, XR CHEST 1 VIEW, 04/10/2021, 13:54. [facility], CT, CT CHEST ABD PEL W CON, 03/10/2022, 10:56. FINDINGS: Surgical changes and devices: A pacer device is seen. The leads are seen in stable positions. Lungs and pleura: No focal infiltrates are seen. No pulmonary nodules are seen. Minimal blunting of the left costophrenic angle can be seen. No pneumothorax is seen. Mediastinum: The cardiac contours are moderately enlarged. The aorta demonstrates calcification and tortuosity. Bones and chest wall: No suspicious bony abnormalities. Age-appropriate bony degenerative changes are seen. Soft tissues appear unremarkable. IMPRESSION: Moderate cardiomegaly. Minimal left-sided pleural effusion. The small pulmonary nodules that are well seen by CT are not seen by plain film. Postoperative and degenerative changes are seen. Dictated by: Jose Guadalupe García M.D. on 04/03/2022 at 9:14 Approved by: Jose Guadalupe García M.D. on 04/03/2022 at 9:16
== END ==
PROVIDERS: Family Provider Family Medicine; PCP Family Medicine; Referring Provider Physician Assistant Surgical; Visit Provider Physician Assistant Surgical
DX: C20 Malignant neoplasm of rectum (principal); I51.7 Cardiomegaly; R91.8 Other nonspecific abnormal finding of lung field
CPT/HCPCS: 71046

== ENCOUNTER → 2022-04-14 08:53 | Outpatient (CLI) | payer MEDICARE, SELFPAY ==
[2022-04-14 10:43] LABS: Add Manual Diff / Slide Review NO; Basophils Absolute Auto 0 /uL (0-100); Basophils Percent Auto 0.5 % (0-2); Eosinophils Absolute Auto 0 /uL (0-450); Eosinophils Percent Auto 0.8 % (2-4); Hematocrit 25.5 % (41-53); Hemoglobin 7.9 g/dL (13.5-17.5); Lymphocytes Absolute Auto 1100 /uL (1100-4500); Lymphocytes Percent Auto 17.7 % (25-40); Mean Corpuscular Hemoglobin 23.8 PG (26-34); Monocytes Absolute Auto 400 /uL (0-900); Monocytes Percent Auto 6.5 % (3-14); Neutrophils Absolute Auto 4800 /uL (1500-7000); Neutrophils Percent Auto 74.5 % (50-75); Platelet Count 254 X10^3/uL (150-400); Red Blood Cell Count 3.32 X10^6/uL (4.5-5.9); Red Cell Distribution Width 16.7 % (11.6-14.8); White Blood Cell Count 6.4 X10^3/uL (4.5-11.0)
[2022-04-14 11:53] LABS: BUN Creatinine Ratio 24.8 (6-22); Blood Urea Nitrogen 30 mg/dL (9-20); Calcium 9.3 mg/dL (8.4-10.2); Carbon Dioxide 31 mmol/L (22-32); Chloride 95 mmol/L (98-107); Estimated Glomerular Filt Rate 60 mL/min (>60); Glucose 149 mg/dL (80-110); HEMOLYSIS < 15 (0-50); Potassium 3.8 mmol/L (3.4-5.1); Sodium 138 mmol/L (137-145)
== END ==
PROVIDERS: Family Provider Family Medicine; PCP Family Medicine; Referring Provider Internal Medicine Cardiovascular Disease; Visit Provider Internal Medicine Cardiovascular Disease
DX: I48.0 Paroxysmal atrial fibrillation (principal)
CPT/HCPCS: 36415; 80048; 85025

== ENCOUNTER → 2022-04-26 09:48 | Outpatient (CLI) | payer MEDICARE, SELFPAY ==
[2022-04-26 10:43] LABS: Add Manual Diff / Slide Review NO; Basophils Absolute Auto 0 /uL (0-100); Basophils Percent Auto 0.6 % (0-2); Eosinophils Absolute Auto 0 /uL (0-450); Eosinophils Percent Auto 0.3 % (2-4); Hemoglobin 10.4 g/dL (13.5-17.5); Lymphocytes Absolute Auto 1100 /uL (1100-4500); Lymphocytes Percent Auto 13.4 % (25-40); Mean Corpuscular HGB Conc 31.5 % (30-36); Mean Corpuscular Hemoglobin 24.8 PG (26-34); Monocytes Absolute Auto 1000 /uL (0-900); Monocytes Percent Auto 12.5 % (3-14); Neutrophils Absolute Auto 5700 /uL (1500-7000); Neutrophils Percent Auto 73.2 % (50-75); Platelet Count 265 X10^3/uL (150-400); Red Blood Cell Count 4.18 X10^6/uL (4.5-5.9); Red Cell Distribution Width 18.7 % (11.6-14.8); White Blood Cell Count 7.8 X10^3/uL (4.5-11.0)
[2022-04-26 11:04] LABS: Blood Urea Nitrogen 21 mg/dL (9-20); Carbon Dioxide 33 mmol/L (22-32); Chloride 98 mmol/L (98-107); Potassium 4.1 mmol/L (3.4-5.1); Sodium 140 mmol/L (137-145)
[2022-04-26 11:05] LABS: Alanine Aminotransferase 15 IU/L (<50); Alkaline Phosphatase 72 U/L (38-126); Aspartate Aminotransferase 25 IU/L (17-59); BUN Creatinine Ratio 18.6 (6-22); Bilirubin Total 0.5 mg/dL (0.2-1.3); Calcium 9.1 mg/dL (8.4-10.2); Estimated Glomerular Filt Rate > 60 mL/min (>60); Globulin 3.9 g/dL (1.7-4.1); Glucose 89 mg/dL (80-110); HEMOLYSIS < 15 (0-50); Total Protein 7.9 g/dL (6.3-8.2)
[2022-04-26 11:35] LABS: Carcinoembryonic Antigen 0.7 ng/mL (0.1-3.0)
== END ==
PROVIDERS: Internal Medicine Medical Oncology; Family Provider Family Medicine; PCP Family Medicine; Referring Provider Family Medicine; Visit Provider Family Medicine
DX: C20 Malignant neoplasm of rectum (principal)
CPT/HCPCS: 36415; 80053; 82378; 85025

== ENCOUNTER → 2022-05-25 09:10 | Outpatient (CLI) | payer MEDICARE, SELFPAY ==
--- NOTE | 2022-05-25 | DI.ECHO.S_ITS ---
[facility] +---------+ : : [address] : : : : [id number] : : : : Phone: [phone]+ Echocardiogram Report + + :Name: DALIA ORDONEZ Study Date: 05/25/2022 Height: 68 in : :[facility] ReadingLocation: Weight: 173 lb : : Gender: Male BSA: 1.9 m2 : :: 1940 Age: 82 yrs BP: 122/67 mmHg: :Reason For Study: SYSTOLIC HEART FAILURE : :Ordering Physician: MARYSE, : :MICHAEL Performed By: Carmela Srivastava : :Referring: MICHAEL SERRA : + + Interpretation Summary There is mild concentric left ventricular hypertrophy. The ejection fraction is estimated to be 35-40%. Diastolic function could not be accurately assessed due to atrial fibrillation. The right ventricle is normal size. Right ventricular systolic function is mild to moderately reduced. Severe biatrial enlargement. There is moderate mitral regurgitation. There is moderate aortic regurgitation. There is moderate to severe tricuspid regurgitation. The right ventricular systolic pressure is estimated to be at least 56 mmHg based on an estimated right atrial pressure of 8 mm Hg. Compared to the prior study dated 11/09/2021, there is a slight decrease in RV function. Procedure: A two-dimensional transthoracic echocardiogram with color flow and Doppler was performed. The study quality was technically adequate. Comparison is made with the echocardiogram of 11/09/2021. The patient was in atrial fibrillation with heart rates between 75-104 bpm during the exam. Left Ventricle: The left ventricle is normal in size. The estimated left ventricular end diastolic volume is 104 ml. There is mild concentric left ventricular hypertrophy. The ejection fraction is estimated to be 35-40%. Diastolic function could not be accurately assessed due to atrial fibrillation. Right Ventricle: The right ventricle is normal size. There is a pacemaker lead in the right ventricle. Right ventricular systolic function is mild to moderately reduced. Atria: The left atrium is severely dilated. The right atrium is severely dilated. There is a catheter/pacemaker lead seen in the right atrium. There is no Doppler evidence for an interatrial shunt. Mitral Valve: The mitral valve leaflets appear borderline thickened, but open well. There is moderate mitral regurgitation. There are multiple regurgitant jets present. Aortic Valve: The aortic valve is trileaflet. The aortic valve is mildly calcified. There is discrete nodular thickening of the non- coronary cusp. There is no aortic valve stenosis. There is moderate aortic regurgitation. Tricuspid Valve: The tricuspid valve leaflets are thin and pliable. The right ventricular systolic pressure is estimated to be at least 56 mmHg based on an estimated right atrial pressure of 8 mm Hg. There is moderate to severe tricuspid regurgitation. Pulmonic Valve: The pulmonic valve leaflets are thin and pliable; valve motion is normal. There is no pulmonic valvular regurgitation. Great Vessels: The aortic root is normal size. The ascending aorta is at the upper limits of normal in size. The IVC is dilated (diameter is greater than 2.1 cm) yet it collapses greater than 50% with a sniff. This suggests a right atrial pressure of 8 mm Hg. Pericardium/ Pleura There is a trivial pericardial effusion noted. There is no pleural effusion. MMode/2D Measurements & Calculations LVIDd: 5.1 cm LVOT diam: 2.4 cm LVIDs: 4.5 cm Ao root diam: 3.8 cm FS: 10.6 % asc Aorta Diam: 3.7 cm EPSS: 1.0 cm Ao Arch Diam (Prox Trans): 2.2 cm IVSd: 1.3 cm LVPWd: 1.5 cm LV ugarte. diameter/BSA (cm/m^2): 2.6 LV sys. diameter/BSA (cm/m^2): 2.4 LA A2 area: 40.5 cm2 RA long axis: 7.3 cm LA A4 area: 33.7 cm2 RA area: 31.3 cm2 LA length (vol): 7.2 cm RA vol: 114.5 ml LA vol: 161.7 ml RA : 59.6 ml/m2 LA vol index: 84.1 ml/m2 IVC diam: 2.3 cm RVD1 (basal): 3.9 cm RVD2 (mid): 2.7 cm TAPSE: 0.92 cm Doppler Measurements & Calculations Ao V2 max: 130.3 cm/sec LVOT Max Yfn: 71.4 cm/sec Ao V2 mean: 87.9 cm/sec LV V1 max P.0 mmHg Ao max P.8 mmHg LV V1 VTI: 13.0 cm Ao mean P.6 mmHg SCOOTER(I,D): 2.2 cm2 Ao V2 VTI: 25.6 cm SCOOTER(V,D): 2.4 cm2 sev ratio: 0.51 SCOOTER indexed to BSA (cm^2/m^2): 1.1 AI P1/2t: 564.2 msec AI dec slope: 208.7 cm/sec2 MV E max yfn: 99.0 cm/sec TR max yfn: 345.8 cm/sec MV A max yfn: 1.7 cm/sec TR max P.8 mmHg MV E/A: 57.3 PA V2 max: 71.8 cm/sec Med Peak E' Yfn: 5.3 cm/sec PA V2 mean: 47.1 cm/sec E/E' med: 18.5 PA mean P.0 mmHg Lat Peak E' Yfn: 9.0 cm/sec PA pr(Accel): 44.7 mmHg E/E' lat: 11.0 E/e' average: 14.8 MV dec time: 0.18 sec SV(LVOT): 56.6 ml Reading Physician:03:03 PM
== END ==
PROVIDERS: Family Provider Family Medicine; PCP Family Medicine; Referring Provider Nurse Practitioner Acute Care; Visit Provider Nurse Practitioner Acute Care
DX: I50.20 Unspecified systolic (congestive) heart failure (principal); I08.3 Combined rheumatic disorders of mitral, aortic and tricuspid valves
CPT/HCPCS: 93306

== ENCOUNTER → 2022-06-08 09:11 | Outpatient (CLI) | payer MEDICARE, SELFPAY ==
[2022-06-08 10:37] LABS: Add Manual Diff / Slide Review NO; Basophils Absolute Auto 0 /uL (0-100); Basophils Percent Auto 0.5 % (0-2); Eosinophils Absolute Auto 100 /uL (0-450); Eosinophils Percent Auto 0.9 % (2-4); Hematocrit 33.8 % (41-53); Hemoglobin 10.7 g/dL (13.5-17.5); Lymphocytes Absolute Auto 1300 /uL (1100-4500); Lymphocytes Percent Auto 17.5 % (25-40); Mean Corpuscular HGB Conc 31.7 % (30-36); Mean Corpuscular Hemoglobin 23.9 PG (26-34); Mean Corpuscular Volume 75.4 fL (80-100); Monocytes Absolute Auto 700 /uL (0-900); Monocytes Percent Auto 9.1 % (3-14); Neutrophils Absolute Auto 5200 /uL (1500-7000); Platelet Count 315 X10^3/uL (150-400); Red Blood Cell Count 4.49 X10^6/uL (4.5-5.9); Red Cell Distribution Width 19.3 % (11.6-14.8); White Blood Cell Count 7.2 X10^3/uL (4.5-11.0)
[2022-06-08 11:12] LABS: Blood Urea Nitrogen 31 mg/dL (9-20); Calcium 9.2 mg/dL (8.4-10.2); Carbon Dioxide 36 mmol/L (22-32); Chloride 89 mmol/L (98-107); Estimated Glomerular Filt Rate 52 mL/min (>60); Glucose 142 mg/dL (80-110); HEMOLYSIS < 15 (0-50); Potassium 3.5 mmol/L (3.4-5.1); Sodium 138 mmol/L (137-145)
== END ==
PROVIDERS: Family Provider Family Medicine; PCP Family Medicine; Referring Provider Physician Assistant Medical; Visit Provider Physician Assistant Medical
DX: I48.19 Other persistent atrial fibrillation (principal)
CPT/HCPCS: 36415; 80048; 85025

== ENCOUNTER → 2022-10-14 08:45 | Outpatient (CLI) | payer MEDICARE, SELFPAY ==
[2022-10-14 10:05] LABS: Add Manual Diff / Slide Review NO; Basophils Absolute Auto 0 /uL (0-100); Basophils Percent Auto 0.6 % (0-2); Eosinophils Absolute Auto 100 /uL (0-450); Eosinophils Percent Auto 2.1 % (2-4); Hematocrit 36.9 % (41-53); Hemoglobin 12.3 g/dL (13.5-17.5); Lymphocytes Absolute Auto 1500 /uL (1100-4500); Lymphocytes Percent Auto 27.6 % (25-40); Mean Corpuscular HGB Conc 33.3 % (30-36); Mean Corpuscular Hemoglobin 31.1 PG (26-34); Mean Corpuscular Volume 93.2 fL (80-100); Monocytes Absolute Auto 400 /uL (0-900); Monocytes Percent Auto 8.1 % (3-14); Neutrophils Absolute Auto 3400 /uL (1500-7000); Neutrophils Percent Auto 61.6 % (50-75); Platelet Count 185 X10^3/uL (150-400); Red Blood Cell Count 3.96 X10^6/uL (4.5-5.9); Red Cell Distribution Width 23.9 % (11.6-14.8); White Blood Cell Count 5.6 X10^3/uL (4.5-11.0)
[2022-10-14 10:36] LABS: Poikilocytosis 1+
[2022-10-14 10:37] LABS: Anisocytosis 2+
== END ==
PROVIDERS: Family Provider Family Medicine; PCP Family Medicine; Referring Provider Internal Medicine Cardiovascular Disease; Visit Provider Internal Medicine Cardiovascular Disease
DX: I49.5 Sick sinus syndrome (principal)
CPT/HCPCS: 36415; 85025

== ENCOUNTER → 2022-12-06 08:40 | Outpatient (CLI) | payer MEDICARE, SELFPAY ==
[2022-12-06 10:48] LABS: Add Manual Diff / Slide Review NO; Basophils Absolute Auto 0 /uL (0-100); Basophils Percent Auto 0.4 % (0-2); Eosinophils Absolute Auto 100 /uL (0-450); Eosinophils Percent Auto 0.9 % (2-4); Hematocrit 35.8 % (41-53); Lymphocytes Absolute Auto 1300 /uL (1100-4500); Mean Corpuscular HGB Conc 33.6 % (30-36); Mean Corpuscular Hemoglobin 31.3 PG (26-34); Monocytes Absolute Auto 1300 /uL (0-900); Monocytes Percent Auto 13.8 % (3-14); Neutrophils Absolute Auto 6500 /uL (1500-7000); Neutrophils Percent Auto 70.9 % (50-75); Platelet Count 169 X10^3/uL (150-400); Red Blood Cell Count 3.85 X10^6/uL (4.5-5.9); Red Cell Distribution Width 14.8 % (11.6-14.8); White Blood Cell Count 9.2 X10^3/uL (4.5-11.0)
[2022-12-06 11:07] LABS: Alanine Aminotransferase 22 IU/L (<50); Albumin 4.1 g/dL (3.5-5.0); Albumin Globulin Ratio 1.1 (1.0-2.8); Alkaline Phosphatase 111 U/L (38-126); Aspartate Aminotransferase 29 IU/L (17-59); Bilirubin Total 1.3 mg/dL (0.2-1.3); Blood Urea Nitrogen 27 mg/dL (9-20); Calcium 9.4 mg/dL (8.4-10.2); Carbon Dioxide 37 mmol/L (22-32); Chloride 95 mmol/L (98-107); Estimated Glomerular Filt Rate > 60 mL/min (>60); Globulin 3.8 g/dL (1.7-4.1); Glucose 89 mg/dL (80-110); HEMOLYSIS < 15 (0-50); Potassium 3.9 mmol/L (3.4-5.1); Sodium 137 mmol/L (137-145); Total Protein 7.9 g/dL (6.3-8.2)
[2022-12-06 11:10] LABS: Lactate Dehydrogenase 163 U/L (120-246)
[2022-12-06 11:33] LABS: Creatinine Urine Random 32.4 mg/dL
[2022-12-06 11:37] LABS: Microalbumi Creatinin Ratio Ur 336.4 ug/mg CR (<30); Microalbumin Urine Random 10.9 mg/dL (0-1.6)
== END ==
PROVIDERS: Internal Medicine Medical Oncology; Family Provider Family Medicine; PCP Family Medicine; Referring Provider Family Medicine; Visit Provider Family Medicine
DX: D50.9 Iron deficiency anemia, unspecified (principal); C20 Malignant neoplasm of rectum; E05.90 Thyrotoxicosis, unspecified without thyrotoxic crisis or storm; E78.5 Hyperlipidemia, unspecified; I10 Essential (primary) hypertension; I48.91 Unspecified atrial fibrillation; N18.30 Chronic kidney disease, stage 3 unspecified
CPT/HCPCS: 36415; 80053; 82043; 82378; 82570; 83615; 85025

== ENCOUNTER → 2022-12-24 09:15 | Outpatient (CLI) | payer MEDICARE, SELFPAY ==
--- NOTE | 2022-12-24 | DI.CT.S_ITS ---
PROCEDURE: CT CHEST ABD PEL W CON INDICATIONS: Malignant neoplasm of rectum / LAB EO TECHNIQUE: After the administration of oral and intravenous contrast, axial sections acquired from the supraclavicular neck to the pubic symphysis. Coronal and sagittal reformats were performed. For radiation dose reduction, the following was used: automated exposure control, adjustment of mA and/or kV according to patient size. COMPARISON: [facility], CT, CT CHEST ABD PEL W CON, 03/10/2022, 10:56. Outside Film, MR, MR PELVIS WITH/WITHOUT CONTRAST, 05/11/2022, 14:18. [facility], CT, CT PELVIS WITH CONTRAST, 05/18/2022, 13:51. FINDINGS: Image quality: Good Lungs and pleura: No suspicious/new/enlarging nodule. Scattered scarring and atelectasis. There is a small left pleural effusion. Many micro nodules and granulomas are present. Mediastinum, heart, and esophagus: Nonspecific distal esophageal wall thickening and hiatal hernia. Cardiomegaly. Electrode leads are present with left chest wall pulse generator. There are coronary calcifications. No pathologic lymph nodes by size criteria. Trace pericardial effusion. Chest wall and thyroid: Unremarkable. Solid organs: Multiple hepatic cysts. Subcentimeter lesions are too small to characterize, stable, probably also cysts. Gallbladder is unremarkable. No pathologic dilation of the biliary tree or pancreatic duct. No splenomegaly. No adrenal nodules. There are renal cysts. No hydronephrosis. Vessels and lymph nodes: No abdominal aortic aneurysm. Atherosclerotic calcifications are present, with likely stenosis in the partially seen PROGRAM DIRECTOR/TRAFFIC DIRECTOR. Reflux of contrast into the hepatic veins suggestive of high right heart pressures. No pathologic lymph nodes identified by size criteria. Bowel and peritoneum: Small duodenal diverticulum. No bowel obstruction. No pathologic ascites or abscess. No measurable rectal mass identified. Perirectal mild fat stranding may represent post treatment changes. There are colonic diverticula. Sigmoid colon is seen within the left inguinal hernia, without upstream obstruction. Body wall: Left inguinal hernia with fat and sigmoid colon. Pelvis: Bladder is under distended and not well evaluated. Prostate is also not well evaluated. Bones: No acute or suspicious osseous finding. There are degenerative changes. IMPRESSION: No new or enlarging disease identified. Small left pleural effusion. Many other nonacute and incidental findings described above. Dictated by: Vipul Wade M.D. on 12/24/2022 at 12:14 Approved by: Vipul Wade M.D. on 12/24/2022 at 12:26
[2022-12-24 09:58] LABS: Estimated Glomerular Filt Rate > 60 mL/min (>60)
== END ==
PROVIDERS: Radiology Diagnostic Radiology; Family Provider Family Medicine; PCP Family Medicine; Referring Provider Surgery; Visit Provider Surgery
DX: C20 Malignant neoplasm of rectum (principal); I10 Essential (primary) hypertension; K76.89 Other specified diseases of liver; J90 Pleural effusion, not elsewhere classified; N28.1 Cyst of kidney, acquired; I25.10 Atherosclerotic heart disease of native coronary artery without angina pectoris; I51.7 Cardiomegaly; K57.10 Diverticulosis of small intestine without perforation or abscess without bleeding; K40.90 Unilateral inguinal hernia, without obstruction or gangrene, not specified as recurrent
CPT/HCPCS: 36415; 71260; 74177; 82565; Q9967

== ENCOUNTER → 2022-12-29 10:53 | Outpatient (CLI) | payer MEDICARE, SELFPAY ==
--- NOTE | 2022-12-29 | DI.RAD.S_ITS ---
PROCEDURE: XR CHEST 1V INDICATIONS: CHECK ON PACEMAKER TECHNIQUE: One view of the chest was acquired. COMPARISON: [facility], , XR CHEST 2V, 04/03/2022, 10:00. FINDINGS: Surgical changes and devices: Left chest wall pacemaker generator with intravenous leads that project over the appropriate position. Lungs and pleura: Lungs are clear. No pleural effusions or pneumothorax. Scarring of the left lung base. Mediastinum: Mediastinal contours appear normal. Heart size is normal. Bones and chest wall: No suspicious bony lesions. Overlying soft tissues appear unremarkable. IMPRESSION: Left chest wall pacemaker generator and intravenous leads, which project over the appropriate position. No pneumothorax. Dictated by: Pranay Rios M.D. on 12/29/2022 at 12:36 Approved by: Pranay Rios M.D. on 12/29/2022 at 12:37
== END ==
PROVIDERS: Family Provider Family Medicine; PCP Family Medicine; Referring Provider Surgery; Visit Provider Surgery
DX: C20 Malignant neoplasm of rectum (principal); Z45.018 Encounter for adjustment and management of other part of cardiac pacemaker
CPT/HCPCS: 71045

== ENCOUNTER → 2023-02-18 09:43 | Outpatient (CLI) | payer MEDICARE, SELFPAY ==
[2023-02-18 10:43] LABS: Add Manual Diff / Slide Review NO; Basophils Absolute Auto 100 /uL (0-100); Basophils Percent Auto 0.8 % (0-2); Eosinophils Absolute Auto 200 /uL (0-450); Eosinophils Percent Auto 2.1 % (2-4); Hematocrit 35.6 % (41-53); Hemoglobin 11.6 g/dL (13.5-17.5); Lymphocytes Absolute Auto 1400 /uL (1100-4500); Lymphocytes Percent Auto 17.4 % (25-40); Mean Corpuscular HGB Conc 32.5 % (30-36); Mean Corpuscular Hemoglobin 29.5 PG (26-34); Mean Corpuscular Volume 90.7 fL (80-100); Monocytes Absolute Auto 900 /uL (0-900); Monocytes Percent Auto 11.6 % (3-14); Neutrophils Absolute Auto 5300 /uL (1500-7000); Neutrophils Percent Auto 68.1 % (50-75); Platelet Count 235 X10^3/uL (150-400); Red Blood Cell Count 3.93 X10^6/uL (4.5-5.9); Red Cell Distribution Width 16.1 % (11.6-14.8); White Blood Cell Count 7.8 X10^3/uL (4.5-11.0)
[2023-02-18 11:05] LABS: Alanine Aminotransferase 22 IU/L (<50); Albumin 4.1 g/dL (3.5-5.0); Albumin Globulin Ratio 1.3 (1.0-2.8); Alkaline Phosphatase 91 U/L (38-126); Aspartate Aminotransferase 39 IU/L (17-59); BUN Creatinine Ratio 27.9 (6-22); Blood Urea Nitrogen 31 mg/dL (9-20); Calcium 9.6 mg/dL (8.4-10.2); Carbon Dioxide 30 mmol/L (22-32); Chloride 98 mmol/L (98-107); Estimated Glomerular Filt Rate > 60 mL/min (>60); Globulin 3.2 g/dL (1.7-4.1); Glucose 87 mg/dL (80-110); HEMOLYSIS < 15 (0-50); Potassium 4.1 mmol/L (3.4-5.1); Sodium 139 mmol/L (137-145); Total Protein 7.3 g/dL (6.3-8.2)
== END ==
PROVIDERS: Family Provider Family Medicine; PCP Family Medicine; Referring Provider Dermatology; Visit Provider Dermatology
DX: Z48.817 Encounter for surgical aftercare following surgery on the skin and subcutaneous tissue (principal)
CPT/HCPCS: 36415; 80053; 85025

== ENCOUNTER → 2023-06-06 12:45 | Outpatient (CLI) | payer MEDICARE, SELFPAY ==
[2023-06-06 13:25] LABS: Add Manual Diff / Slide Review NO; Basophils Absolute Auto 100 /uL (0-100); Basophils Percent Auto 0.7 % (0-2); Eosinophils Absolute Auto 100 /uL (0-450); Eosinophils Percent Auto 1.1 % (2-4); Hematocrit 40.6 % (41-53); Lymphocytes Absolute Auto 1300 /uL (1100-4500); Lymphocytes Percent Auto 14.2 % (25-40); Mean Corpuscular Volume 90.7 fL (80-100); Monocytes Absolute Auto 1000 /uL (0-900); Monocytes Percent Auto 11.4 % (3-14); Neutrophils Absolute Auto 6500 /uL (1500-7000); Neutrophils Percent Auto 72.6 % (50-75); Platelet Count 222 X10^3/uL (150-400); Red Blood Cell Count 4.47 X10^6/uL (4.5-5.9); Red Cell Distribution Width 15.2 % (11.6-14.8); White Blood Cell Count 8.9 X10^3/uL (4.5-11.0)
== END ==
PROVIDERS: Family Provider Family Medicine; PCP Family Medicine; Referring Provider Family Medicine; Visit Provider Family Medicine
DX: R06.02 Shortness of breath (principal)
CPT/HCPCS: 36415; 85025

== ENCOUNTER 2023-06-08 13:06 | Emergency (ER) | payer MEDICARE, SELFPAY ==
[2023-06-08] VITALS (14 sets, daily range): BP systolic 130–149; BP diastolic 61–76; PULSE 40–75; RESP 17–25; TEMP 36.6; O2SAT 84–100; BMI 26.6
--- NOTE | 2023-06-08 13:31 | DI.RAD.S_ITS ---
PROCEDURE: XR CHEST 1V INDICATIONS: Shortness of breath TECHNIQUE: One view of the chest was acquired. COMPARISON: [facility], CR, XR CHEST 1V, 12/29/2022, 11:12. FINDINGS: Surgical changes and devices: Dual lead cardiac pacemaker is unchanged. Lungs and pleura: New pulmonary radiopacities and pleural effusion are present at the left lung base. Mediastinum: Mediastinal contours appear normal. Heart size is normal. Bones and chest wall: No suspicious bony lesions. Overlying soft tissues appear unremarkable. IMPRESSION: 1. Left basilar consolidation and pleural effusions suspicious for aspiration/infection. Short interval followup is recommended with resolution of the patient's symptoms to ensure there is no underlying pulmonary pathology. Dictated by: Anita Roca M.D. on 06/08/2023 at 14:37 Approved by: Anita Roca M.D. on 06/08/2023 at 14:37
--- NOTE | 2023-06-08 13:40 | PC.NURSE ---
Pts pacemaker interrogated,results printing already
--- NOTE | 2023-06-08 13:47 | PC.NURSE ---
[employer] called and reported that pt has not had any recent cardiac events. 8.4yrs left on the battery.
[2023-06-08 13:56] LABS: INR 1.7 (0.9-1.3); Prothrombin Time 19.6 SECONDS (9.4-12.5)
[2023-06-08 13:58] LABS: Add Manual Diff / Slide Review NO; Basophils Absolute Auto 0 /uL (0-100); Basophils Percent Auto 0.6 % (0-2); Eosinophils Absolute Auto 100 /uL (0-450); Hemoglobin 12.5 g/dL (13.5-17.5); Lymphocytes Absolute Auto 900 /uL (1100-4500); Lymphocytes Percent Auto 13.8 % (25-40); Mean Corpuscular Hemoglobin 28.8 PG (26-34); Mean Corpuscular Volume 90.2 fL (80-100); Monocytes Absolute Auto 700 /uL (0-900); Monocytes Percent Auto 11.7 % (3-14); Neutrophils Absolute Auto 4500 /uL (1500-7000); Neutrophils Percent Auto 72.9 % (50-75); Platelet Count 194 X10^3/uL (150-400); Red Blood Cell Count 4.32 X10^6/uL (4.5-5.9); Red Cell Distribution Width 15.2 % (11.6-14.8); White Blood Cell Count 6.2 X10^3/uL (4.5-11.0)
[2023-06-08 14:00] LABS: Lactate (Lactic Acid) 1.2 mmol/L (0.7-2.1)
[2023-06-08 14:02] LABS: Alanine Aminotransferase 14 IU/L (<50); Albumin 4.1 g/dL (3.5-5.0); Albumin Globulin Ratio 1.1 (1.0-2.8); Alkaline Phosphatase 98 U/L (38-126); Aspartate Aminotransferase 26 IU/L (17-59); Bilirubin Total 0.9 mg/dL (0.2-1.3); Blood Urea Nitrogen 36 mg/dL (9-20); Calcium 9.9 mg/dL (8.4-10.2); Carbon Dioxide 29 mmol/L (22-32); Chloride 99 mmol/L (98-107); Estimated Glomerular Filt Rate > 60 mL/min (>60); Globulin 3.8 g/dL (1.7-4.1); Glucose 105 mg/dL (80-110); HEMOLYSIS < 15 (0-50); Potassium 4.7 mmol/L (3.4-5.1); Sodium 136 mmol/L (137-145); Total Protein 7.9 g/dL (6.3-8.2)
[2023-06-08 14:13] LABS: NT-proBNP (BNP-Adult 18+) 11600 pg/mL (<450); Troponin I 0.036 ng/mL (0.01-0.034)
--- NOTE | 2023-06-08 18:58 | ED.GENADULT ---
HPI - General Adult General Chief complaint: Shortness of Breath/Dyspnea Stated complaint: ref PC SOB/ cynosis/ lower back pain Time Seen by Provider: 06/08/23 17:01 Source: patient Mode of arrival: Wheelchair History of Present Illness HPI narrative: Patient is an 83-year-old male. Is on anticoagulation. Has a pacemaker in place. Since Tuesday he has had intermittent episodes of lower back discomfort. He states he feels like his back tightened up and this causes him to have issues with shortness of breath. His shortness of breath does improve when the back symptoms are not present but he does feel like he is become more short of breath over the past several weeks. No fevers. No chest pain. No cough. No sore throat. No abdominal pain or nausea or vomiting. He does have lower extremity swelling. He does take Lasix although he did not take it today. He does not take it when he goes to doctor's office visits because he does not want to have to urinate as much. He went to his primary doctor's office today. There was concern about discoloration of his hands and feet in his low back pain in the shortness of breath that he was sent to the emergency department for further evaluation. Here in the emergency department he is not having back pain. No chest pain. Did have some shortness of breath when he got up and walked to the bathroom but he states that does seem to get better when he is sitting in bed. He does state that his back pain seems to get worse when he is changing positions specifically getting up from a chair sitting down to a chair. When it does hurt touching the area makes it worse. Related Data Home Medications Medication Instructions Recorded Confirmed metoprolol succinate 50 mg 50 mg PO BID 03/12/22 06/08/23 tablet,extended release 24 hr acetaminophen 325 mg tablet 650 mg PO Q4H PRN Pain (Scale 05/04/22 06/08/23 (Tylenol) Score 4-6) apixaban 5 mg tablet (Eliquis) 5 mg PO BID 09/13/22 06/08/23 Previous Rx's Medication Instructions Recorded furosemide 40 mg tablet See Rx Instructions .Route 07/20/21 .COMPLEX #30 tabs triamcinolone acetonide 0.1 % 1 applic topical BID #80 grams 09/13/22 topical cream cyclobenzaprine 10 mg tablet 10 mg PO TID PRN muscle spasm #20 06/08/23 tabs Allergies Allergy/AdvReac Type Severity Reaction Status Date / Time [place] nut Allergy Severe Swollen Verified 06/08/23 12:50 lips, contristed throat. Review of Systems Constitutional Constitutional: Reports system reviewed and no additional complaints, except as documented ENT Ears, Nose, Mouth, and Throat: Reports system reviewed and no additional complaints, except as documented Cardiovascular Cardiovascular: Reports system reviewed and no additional complaints, except as documented Respiratory Respiratory: Reports system reviewed and no additional complaints, except as documented Gastrointestinal Gastrointestinal: Reports system reviewed and no additional complaints, except as documented Genitourinary Genitourinary: Reports system reviewed and no additional complaints, except as documented Integumentary/Breasts Skin/Breast: Reports system reviewed and no additional complaints, except as documented Neurologic Neurologic: Reports system reviewed and no additional complaints, except as documented Hematologic/Lymphatic On Anticoagulants: Yes Patient History Medical History Hyperthyroidism Neoplasm of uncertain behavior of skin Actinic keratosis Hyperlipidemia Hypertension Atrial fibrillation CKD (chronic kidney disease) stage 3, GFR 30-59 ml/min Social History household members: none Smoking Status: Former smoker alcohol intake: current Smoking Status: Former smoker alcohol intake frequency: 0-2 drinks per day Substance Use Type: does not use Exam Initial Vital Signs Initial Vital Signs: Vital Signs Temperature 97.9 F 06/08/23 13:10 Pulse Rate 70 06/08/23 13:10 Respiratory Rate 22 06/08/23 13:10 Blood Pressure 140/67 06/08/23 13:10 Pulse Oximetry 97 06/08/23 13:10 Oxygen Delivery Method Room Air 06/08/23 13:10 Const General: cooperative and No ill appearing HENMT Head: normal to inspection and normocephalic Resp Effort & Inspection: normal respiratory effort Auscultation: clear to auscultation bilaterally Cardio Rate: regular rate GI Inspection: normal to inspection and non-distended Back/Spine/Pelvis Thoracic/Lumbar Spine: No paraspinal tenderness, No thoraco-lumbar spasm, No thoracic spinal tenderness and No lumbar spinal tenderness Extrem General: capillary refill normal and edema Course Orders Ordered: ED Orders 06/08/23 13:31 XR chest 1V Stat EKG-12 Lead Stat Measure peak expiratory flow ONCE RT Consult Eval and Treat NOW 06/08/23 13:45 Complete Blood Count AUTO DIFF Stat Comprehensive Metabolic Panel Stat Lactate (Lactic Acid) Stat NT-proBNP (BNP-Adult 18+) Stat Prothrombin Time INR Stat Troponin I Stat Vital Signs Vital signs: Vital Signs - 8 hr 06/08/23 18:01 06/08/23 18:01 06/08/23 19:29 Pulse Rate 69 Blood Pressure 134/64 Pulse Oximetry 97 97 Oxygen Delivery Method 06/08/23 19:30 06/08/23 19:30 Pulse Rate 70 Blood Pressure 149/71 H Pulse Oximetry 97 Oxygen Delivery Method Room Air Medical Decision Making Lab Data Lab results reviewed: Yes I reviewed the patient's lab results. 06/08/23 13:45 06/08/23 13:45 Labs: Lab Results 06/08/23 Range/Units 13:45 WBC 6.2 (4.5-11.0) X10^3/uL RBC 4.32 L (4.5-5.9) X10^6/uL Hgb 12.5 L (13.5-17.5) g/dL Hct 39.0 L (41-53) % MCV 90.2 (80-100) fL MCH 28.8 (26-34) PG MCHC 32.0 (30-36) % RDW 15.2 H (11.6-14.8) % Plt Count 194 (150-400) X10^3/uL Neut % (Auto) 72.9 (50-75) % Lymph % (Auto) 13.8 L (25-40) % Kern % (Auto) 11.7 (3-14) % Eos % (Auto) 1.0 L (2-4) % Baso % (Auto) 0.6 (0-2) % Neut # (Auto) 4500 (2267-4646) /uL Lymph # (Auto) 900 L (2504-3241) /uL Kern # (Auto) 700 (0-900) /uL Eos # (Auto) 100 (0-450) /uL Baso # (Auto) 0 (0-100) /uL PT 19.6 H (9.4-12.5) SECONDS INR 1.7 H (0.9-1.3) Sodium 136 L (137-145) mmol/L Potassium 4.7 (3.4-5.1) mmol/L Chloride 99 (98-107) mmol/L Carbon Dioxide 29 (22-32) mmol/L BUN 36 H (9-20) mg/dL Creatinine 1.09 (0.66-1.25) mg/dL Estimated GFR > 60 (>60) mL/min BUN/Creatinine Ratio 33.0 H (6-22) Glucose 105 (80-110) mg/dL Lactate 1.2 (0.7-2.1) mmol/L Calcium 9.9 (8.4-10.2) mg/dL Total Bilirubin 0.9 (0.2-1.3) mg/dL AST 26 (17-59) IU/L ALT 14 (<50) IU/L Alkaline Phosphatase 98 (38-126) U/L Troponin I 0.036 H (0.01-0.034) ng/mL NT-Pro-B Natriuret Pep 67070 H (<450) pg/mL Total Protein 7.9 (6.3-8.2) g/dL Albumin 4.1 (3.5-5.0) g/dL Globulin 3.8 (1.7-4.1) g/dL Albumin/Globulin Ratio 1.1 (1.0-2.8) Imaging Data Chest x-ray: Radiologist's Impression: PROCEDURE: XR CHEST 1V INDICATIONS: Shortness of breath TECHNIQUE: One view of the chest was acquired. COMPARISON: [facility], , XR CHEST 1V, 12/29/2022, 11:12. FINDINGS: Surgical changes and devices: Dual lead cardiac pacemaker is unchanged. Lungs and pleura: New pulmonary radiopacities and pleural effusion are present at the left lung base. Mediastinum: Mediastinal contours appear normal. Heart size is normal. Bones and chest wall: No suspicious bony lesions. Overlying soft tissues appear unremarkable. IMPRESSION: 1. Left basilar consolidation and pleural effusions suspicious for aspiration/infection. Short interval followup is recommended with resolution of the patient's symptoms to ensure there is no underlying pulmonary pathology. ECG Data Attestation: I personally reviewed and interpreted this ECG as follows: Interpretation: Ventricularly paced Rate of 81 MDM Narrative Medical decision making narrative: Patient's lab does show an elevation of his BNP above baseline. He does have lower extremity swelling. Given his symptoms there is a possibility that he is fluid overloaded. His lungs are clear. He clinically does not have pneumonia. No indication for antibiotics. He is not having chest pain. He is paced in his EKG. He does have a history of colon cancer however he states that he recently had an MRI and CT scan which did not show any signs of metastasis. I have low suspicion that that is what is causing his back pain today. He has not had a fall. Low suspicion for fracture. Considered imaging his lower back with the x-ray however feel that an acute bony injury is unlikely. His back discomfort does sound like muscle spasms. He does admit that when the pain comes on it is very strong in the most likely is causing his shortness of breath an underlying situation where he is retaining fluid. Will try muscle relaxers. Will have him increase his Lasix to 60 mg once a day. No indication for admission to the hospital. He was given return precautions. He expressed understanding and agreement. Discharge Plan Departure Patient Disposition: Home Clinical Impression: Back pain, Shortness of breath Instructions: Low Back Pain, DI for Shortness of Breath Activity Restrictions/Additional Instructions: I recommend that you continue to take all of your medications as directed except increase your Lasix/furosemide to 60 mg a day. I recommend you do this for the next week and you can adjust this back to normal like we discussed. Also recommend you continue with conservative measures such as heat/ice/massage and stretching for your low back pain. Use the cyclobenzaprine/Flexeril as needed. Remember this medicine can make you drowsy. Contact your primary provider for a follow-up. Prescriptions: New cyclobenzaprine 10 mg tablet 10 mg PO TID PRN (Reason: muscle spasm) Qty: 20 0RF No Action furosemide 40 mg tablet See Rx Instructions .ROUTE .COMPLEX Qty: 30 3RF Dose Instruction: TAKE 1 TABLET BY MOUTH EVERY DAY. INCREASE FROM 20 MG TO 40 MG DAILY Rx Instructions: Pt currently taking 60 mg M,W,F, 40 mg X 4 days. TAKE 1 TABLET BY MOUTH EVERY DAY. INCREASE FROM 20 MG TO 40 MG DAILY Eliquis 5 mg tablet 5 mg PO BID metoprolol succinate 50 mg tablet extended release 24 hr 50 mg PO BID triamcinolone acetonide 0.1 % cream 1 applic topical BID Qty: 80 1RF acetaminophen [Tylenol] 325 mg Tablet 650 mg PO Q4H PRN (Reason: Pain (Scale Score 4-6)) Referrals: Jean More MD [Primary Care Provider] - Stand Alone Forms: Patient Portal/API
== END 2023-06-08 19:38 | disposition home or self-care (01) ==
PROVIDERS: Emergency Medicine; Emergency Provider Emergency Medicine; Family Provider Family Medicine; PCP Family Medicine
DX: M54.50 Low back pain, unspecified (principal); R06.02 Shortness of breath
CPT/HCPCS: 36415; 71045; 80053; 83605; 83880; 84484; 85025; 85610; 93005; 93010; 99283

== ENCOUNTER → 2023-10-11 10:27 | Outpatient (CLI) | payer MEDICARE, SELFPAY ==
--- NOTE | 2023-10-11 10:30 | DI.RAD.S_ITS ---
PROCEDURE: XR CHEST 2V INDICATIONS: GONSALES TECHNIQUE: 2 views of the chest were acquired. COMPARISON: [facility], CR, XR CHEST 1V, 06/08/2023, 13:58. [facility], CR, XR CHEST 1V, 12/29/2022, 11:12. [facility], CR, XR CHEST 2V, 04/03/2022, 10:00. FINDINGS: Surgical changes and devices: There is a cardiac pacemaker. Lungs and pleura: Small pleural effusions are present bilaterally. Increased pulmonary vascularity compatible with mild CHF. No pneumothorax. Mediastinum: Mediastinal contours are normal. Heart size is moderately enlarged. Bones and chest wall: No suspicious bony abnormalities. Soft tissues appear unremarkable. IMPRESSION: Mild CHF. Dictated by: Jacki Staley M.D. on 10/11/2023 at 12:46 Approved by: Jacki Staley M.D. on 10/11/2023 at 12:47
[2023-10-11 11:52] LABS: Add Manual Diff / Slide Review NO; Basophils Absolute Auto 100 /uL (0-100); Basophils Percent Auto 0.8 % (0-2); Eosinophils Absolute Auto 100 /uL (0-450); Eosinophils Percent Auto 1.4 % (2-4); Hematocrit 41.7 % (41-53); Hemoglobin 13.5 g/dL (13.5-17.5); Lymphocytes Absolute Auto 900 /uL (1100-4500); Lymphocytes Percent Auto 14.2 % (25-40); Mean Corpuscular HGB Conc 32.4 % (30-36); Mean Corpuscular Hemoglobin 29.9 PG (26-34); Mean Corpuscular Volume 92.2 fL (80-100); Monocytes Absolute Auto 800 /uL (0-900); Neutrophils Absolute Auto 4600 /uL (1500-7000); Neutrophils Percent Auto 71.6 % (50-75); Platelet Count 165 X10^3/uL (150-400); Red Blood Cell Count 4.53 X10^6/uL (4.5-5.9); White Blood Cell Count 6.4 X10^3/uL (4.5-11.0)
[2023-10-11 12:18] LABS: Alanine Aminotransferase 13 IU/L (<50); Albumin 4.2 g/dL (3.5-5.0); Albumin Globulin Ratio 1.4 (1.0-2.8); Alkaline Phosphatase 114 U/L (38-126); Aspartate Aminotransferase 28 IU/L (17-59); BUN Creatinine Ratio 34.5 (6-22); Bilirubin Total 1.4 mg/dL (0.2-1.3); Blood Urea Nitrogen 41 mg/dL (9-20); Calcium 9.7 mg/dL (8.4-10.2); Carbon Dioxide 32 mmol/L (22-32); Chloride 101 mmol/L (98-107); Estimated Glomerular Filt Rate > 60 mL/min (>60); Globulin 3.1 g/dL (1.7-4.1); Glucose 99 mg/dL (80-110); HEMOLYSIS < 15 (0-50); Potassium 4.3 mmol/L (3.4-5.1); Sodium 139 mmol/L (137-145); Total Protein 7.3 g/dL (6.3-8.2)
[2023-10-11 12:24] LABS: NT-proBNP (BNP-Adult 18+) 16400 pg/mL (<450)
== END ==
LOC: RAD 10:28
PROVIDERS: Family Provider Family Medicine; PCP Family Medicine; Referring Provider Nurse Practitioner Acute Care; Visit Provider Nurse Practitioner Acute Care
DX: I50.9 Heart failure, unspecified (principal); R06.09 Other forms of dyspnea
CPT/HCPCS: 36415; 71046; 80053; 83880; 85025

== ENCOUNTER → 2023-10-18 09:53 | Outpatient (CLI) | payer MEDICARE, SELFPAY ==
[2023-10-18 10:59] LABS: BUN Creatinine Ratio 40.2 (6-22); Blood Urea Nitrogen 49 mg/dL (9-20); Calcium 9.4 mg/dL (8.4-10.2); Carbon Dioxide 33 mmol/L (22-32); Chloride 98 mmol/L (98-107); Estimated Glomerular Filt Rate 59 mL/min (>60); Glucose 87 mg/dL (80-110); HEMOLYSIS < 15 (0-50); Potassium 3.7 mmol/L (3.4-5.1); Sodium 138 mmol/L (137-145)
== END ==
PROVIDERS: Family Provider Family Medicine; PCP Family Medicine; Referring Provider Nurse Practitioner Acute Care; Visit Provider Nurse Practitioner Acute Care
DX: R06.09 Other forms of dyspnea (principal)
CPT/HCPCS: 36415; 80048

== ENCOUNTER → 2023-10-24 10:11 | Outpatient (CLI) | payer MEDICARE, SELFPAY ==
--- NOTE | 2023-10-24 10:13 | DI.ECHO.S_ITS ---
[place] [facility]---------+ [facility] : : [address] : : [place] : : [address] : : Phone: [phone] Echocardiogram Report + + :Name: DALIA ORDONEZ Study Date: 10/24/2023 Height: 68 in : :[facility] ReadingLocation: Weight: 170 lb : : Gender: Male BSA: 1.9 m2 : :: 1940 Age: 83 yrs BP: 120/74 mmHg: :Reason For Study: CHRONIC SYSTOLIC HEART FAILURE : :Ordering Physician: JUDY, : :CECELIA Mendez Performed By: Esqeuiel Woodson : :Referring: CECELIA NIETO : + + Interpretation Summary There is mild asymmetric left ventricular hypertrophy. The ejection fraction is estimated to be 25-30%. There is a significant dyssynchronous contraction pattern due to the paced rhythm. Diastolic function could not be accurately assessed due to paced rhythm. The right ventricle is mild to moderately dilated. Right ventricular systolic function is moderately reduced. There is severe biatrial enlargement. There is moderate mitral regurgitation. There is moderate aortic regurgitation. There is severe tricuspid regurgitation. The right ventricular systolic pressure is estimated to be at least 56 mmHg based on an estimated right atrial pressure of 15 mm Hg. There is a trivial pericardial effusion noted. There is a moderate left-sided pleural effusion. Compared to the prior study dated 05/25/2022, the ejection fraction has decreased and the right ventricle now appears dilated. Procedure: A two-dimensional transthoracic echocardiogram with color flow and Doppler was performed. The study quality was technically adequate. Comparison is made with the echocardiogram of 05/25/2022. The patient was in atrial fibrillation with heart rates between 67-94 bpm during the exam. Left Ventricle: The left ventricle is normal in size. There is mild asymmetric left ventricular hypertrophy. The ejection fraction is estimated to be 25-30%. There is a significant dyssynchronous contraction pattern due to the paced rhythm. Diastolic function could not be accurately assessed due to paced rhythm. Right Ventricle: The right ventricle is mild to moderately dilated. There is a pacemaker lead in the right ventricle. Right ventricular systolic function is moderately reduced. Atria: There is severe biatrial enlargement. There is a catheter/pacemaker lead seen in the right atrium. The interatrial septum grossly appears intact with no obvious evidence for an atrial septal defect. Mitral Valve: The mitral valve is normal. There is no mitral valve stenosis. There is moderate mitral regurgitation. Aortic Valve: The aortic valve is trileaflet. The aortic valve is mildly calcified. There is no aortic valve stenosis. There is moderate aortic regurgitation. Tricuspid Valve: The tricuspid valve is normal in structure and function. There is no tricuspid stenosis. There is severe tricuspid regurgitation. The right ventricular systolic pressure is estimated to be at least 56 mmHg based on an estimated right atrial pressure of 15 mm Hg. Pulmonic Valve: The pulmonic valve is not well visualized. There is no pulmonic valvular stenosis. There is a trace or physiologic amount of pulmonic regurgitation. Great Vessels: The aortic root is normal size. The dimensions of the ascending aorta are normal. The IVC is dilated (diameter is greater than 2.1 cm) and it collapses less than 50% with a sniff. This suggests a high right atrial pressure of 15 mm Hg. Pericardium/ Pleura There is a trivial pericardial effusion noted. There is a moderate left-sided pleural effusion. MMode/2D Measurements & Calculations LVIDd: 5.0 cm LVOT diam: 2.3 cm LVIDs: 4.3 cm Ao root diam: 3.2 cm FS: 13.3 % asc Aorta Diam: 3.3 cm IVSd: 1.7 cm LVPWd: 1.3 cm LV ugarte. diameter/BSA (cm/m^2): 2.6 LV sys. diameter/BSA (cm/m^2): 2.3 LA A2 area: 37.1 cm2 RA long axis: 8.2 cm LA A4 area: 31.8 cm2 RA area: 41.9 cm2 LA length (vol): 7.7 cm RA vol: 181.8 ml LA vol: 129.7 ml RA : 95.3 ml/m2 LA vol index: 68.0 ml/m2 IVC diam: 3.0 cm RVD1 (basal): 4.6 cm RVD2 (mid): 4.3 cm Doppler Measurements & Calculations Ao V2 max: 131.8 cm/sec LVOT Max Yfn: 83.8 cm/sec Ao V2 mean: 93.1 cm/sec LV V1 max P.8 mmHg Ao max P.1 mmHg LV V1 VTI: 14.1 cm Ao mean P.0 mmHg SCOOTER(I,D): 2.6 cm2 Ao V2 VTI: 22.5 cm SCOOTER(V,D): 2.7 cm2 sev ratio: 0.63 SCOOTER indexed to BSA (cm^2/m^2): 1.4 AI P1/2t: 524.6 msec AI dec slope: 242.6 cm/sec2 MV E max yfn: 75.9 cm/sec TR max yfn: 319.1 cm/sec MV A max yfn: 25.0 cm/sec TR max P.9 mmHg MV E/A: 3.0 PA V2 max: 63.9 cm/sec MV dec time: 0.20 sec PA V2 mean: 37.3 cm/sec PA mean P.69 mmHg PA pr(Accel): 48.2 mmHg SV(LVOT): 58.9 ml AV P1/2t-pr_phl: 694.4 msec Reading Physician:03:54 PM
== END ==
PROVIDERS: Family Provider Family Medicine; PCP Family Medicine; Referring Provider Internal Medicine Cardiovascular Disease; Visit Provider Internal Medicine Cardiovascular Disease
DX: J90 Pleural effusion, not elsewhere classified (principal); I08.3 Combined rheumatic disorders of mitral, aortic and tricuspid valves; I50.22 Chronic systolic (congestive) heart failure; Z95.0 Presence of cardiac pacemaker
CPT/HCPCS: 93306

== ENCOUNTER → 2023-10-25 09:33 | Outpatient (CLI) | payer MEDICARE, SELFPAY ==
[2023-10-25 10:50] LABS: BUN Creatinine Ratio 30.7 (6-22); Blood Urea Nitrogen 50 mg/dL (9-20); Calcium 9.4 mg/dL (8.4-10.2); Carbon Dioxide 33 mmol/L (22-32); Chloride 98 mmol/L (98-107); Estimated Glomerular Filt Rate 42 mL/min (>60); Glucose 96 mg/dL (80-110); HEMOLYSIS < 15 (0-50); Potassium 3.8 mmol/L (3.4-5.1); Sodium 139 mmol/L (137-145)
== END ==
PROVIDERS: Family Provider Family Medicine; PCP Family Medicine; Referring Provider Nurse Practitioner Acute Care; Visit Provider Nurse Practitioner Acute Care
DX: I50.23 Acute on chronic systolic (congestive) heart failure (principal)
CPT/HCPCS: 36415; 80048

== ENCOUNTER 2023-11-02 08:40 | Emergency (ER) | payer MEDICARE, SELFPAY ==
[2023-11-02] VITALS (14 sets, daily range): BP systolic 120–147; BP diastolic 60–85; PULSE 39–98; RESP 17–24; TEMP 36.6; O2SAT 93–100; BMI 26.6
--- NOTE | 2023-11-02 09:01 | ED.BACK ---
HPI - Back Pain/Injury General Chief Complaint: Back Pain/Injury Stated Complaint: lower back pain, sob Time Seen by Provider: 11/02/23 09:01 Source: patient, RN notes reviewed and old records reviewed Mode of arrival: Wheelchair Limitations: no limitations History of Present Illness HPI Narrative: 83-year-old male history of pacemaker, atrial fibrillation on Eliquis, dyslipidemia, colon cancer treated with radiation who presents with complaint of intermittent low back pain. Patient has had it on off for some time he states he can not lay flat on his back does not allow for it. He thought it might be related to his medications he is stopped his torsemide this weekend take 1 dose of furosemide on Tuesday not had any additional since. He notes it is quite painful for him to walk but it also feel short of breath. Patient states no traumas or falls. He did not have radiation to his abdomen for colon cancer in the past. He denies any pain radiating down his legs no paresthesias. No new bowel or bladder incontinence. No saddle anesthesia. He does note some increasing shortness of breath which he is unsure if it is related to the pain or the fact that he is stopped his diuretics. He denies fevers no chest pain, states he can not lay back flat secondary to his back. He does normally sleep on his side. No nausea or vomiting, no bright red blood or melanotic stools. He states he has had some slight increased swelling in his lower extremities but they are pretty typical for himself. He does have discoloration of his fingers and legs he states this is typical. Home medications include Eliquis 5 mg b.i.d. metoprolol 50 mg b.i.d. he did stop his rosuvastatin about a month and a half ago to see if that bothered his back. When he is on torsemide currently having been changed from furosemide recently. States pacemaker is only prior surgery he did not have a colectomy for his colon cancer. No known drug allergies. Quit smoking in 1976. Has 2 alcoholic drinks daily, no recreational drugs. Dr. More is his primary care physician. Dr. Clark is his automatic spinning lathe setter. He is supposed to see Dr. Daily with electrophysiology tomorrow have another wire put to the lower chamber of his heart. He notes he had a recent echo that was 25-30% had decreased from 30-35% in 2021. Patient also notes he had Tylenol for back pain has been somewhat helpful but still very painful to walk. Related Data Home Medications Medication Instructions Recorded Confirmed metoprolol succinate 50 mg 50 mg PO BID 03/12/22 06/08/23 tablet,extended release 24 hr acetaminophen 325 mg tablet 650 mg PO Q4H PRN Pain (Scale 05/04/22 06/08/23 (Tylenol) Score 4-6) apixaban 5 mg tablet (Eliquis) 5 mg PO BID 09/13/22 06/08/23 Previous Rx's Medication Instructions Recorded furosemide 40 mg tablet See Rx Instructions .Route 07/20/21 .COMPLEX #30 tabs triamcinolone acetonide 0.1 % 1 applic topical BID #80 grams 09/13/22 topical cream cyclobenzaprine 10 mg tablet 10 mg PO TID PRN muscle spasm #20 06/08/23 tabs tramadol 50 mg tablet 50 mg PO Q6H PRN pain #10 tabs 11/02/23 Allergies Allergy/AdvReac Type Severity Reaction Status Date / Time [place] nut Allergy Severe Swollen Verified 06/08/23 12:50 lips, contristed throat. Review of Systems Review of Systems ROS Unobtainable: All systems reviewed & are unremarkable except as noted in HPI and below Patient History Medical History Hyperthyroidism Neoplasm of uncertain behavior of skin Actinic keratosis Hyperlipidemia Hypertension Atrial fibrillation CKD (chronic kidney disease) stage 3, GFR 30-59 ml/min Social History household members: none Smoking Status: Former smoker alcohol intake: current Smoking Status: Former smoker alcohol intake frequency: 0-2 drinks per day Substance Use Type: does not use Exam Narrative Exam Narrative: GENERAL: Alert and oriented x three, male in mild distress. HEENT: Head normocephalic, atraumatic, EOMI, pupils reactive, face symmetric, moist mucous membranes NECK: Supple, full range of motion CARDIOVASCULAR: Regular rhythm with systolic ejection murmur heard best at the left lateral chest murmurs, rubs or gallops. Patient has bilateral lower extremity edema. Patient has purple discoloration of fingers and lower extremities but cap refill is less than 2 seconds. All extremities are warm. RESPIRATORY: Breath sounds equal bilaterally, no wheezes rales or rhonchi. No crackles at the bases. No tachypnea accessory muscle use. ABDOMEN: Soft, nontender. Normoactive bowel sounds all 4 quadrants. No guarding or rebound, rigidity, no mass : No CVA tenderness. BACK: No cervical, thoracic or lumbar vertebral point tenderness. Patient has mildly range of motion. Rectal exam is deferred, no saddle anesthesia. Muscle strength is 5/5 in lower extremities, Cap refill less than 2 seconds all 5 extremities. Sensation is intact in the lower extremities. EXTREMITIES: Normal range of motion, no clubbing or edema. Neurovascularly intact. Patient has a healing wound on the right anterior vicente no signs of infection surrounding. NEUROLOGICAL: Cranial nerves II through XII grossly intact. Moving all extremities SKIN: Warm, dry, no petechiae, no rashes or lesions. Initial Vital Signs Initial Vital Signs: Vital Signs Pulse Rate 61 11/02/23 08:50 Blood Pressure 123/85 11/02/23 08:50 Pulse Oximetry 100 11/02/23 08:50 Course Orders Ordered: Discontinued Medications Aspirin (Aspirin 81 Mg Chew Tab) 324 mg PO NOW ONE Stop: 11/02/23 09:04 Last Admin: 11/02/23 09:47 Dose: Not Given Documented By: CONCHA Furosemide (Furosemide 40 Mg/4 Ml Vial) 40 mg IV NOW ONE Stop: 11/02/23 10:17 Last Admin: 11/02/23 10:42 Dose: 40 mg Documented By: CONCHA Vital Signs Vital signs: Vital Signs - 8 hr 11/02/23 08:50 11/02/23 08:50 11/02/23 08:55 Temperature 97.8 F Pulse Rate 61 69 Respiratory Rate 18 Blood Pressure 123/85 123/85 Pulse Oximetry 100 100 Oxygen Delivery Method Room Air 11/02/23 09:00 11/02/23 09:01 11/02/23 09:01 Temperature Pulse Rate 52 L 51 L Respiratory Rate Blood Pressure 139/60 Pulse Oximetry Oxygen Delivery Method 11/02/23 09:30 11/02/23 09:34 11/02/23 09:34 Temperature Pulse Rate 73 60 Respiratory Rate 24 Blood Pressure 120/62 Pulse Oximetry 95 95 Oxygen Delivery Method 11/02/23 10:00 11/02/23 10:30 11/02/23 11:00 Temperature Pulse Rate 69 69 39 L Respiratory Rate 18 17 18 Blood Pressure Pulse Oximetry 94 Oxygen Delivery Method 11/02/23 11:30 11/02/23 11:49 11/02/23 11:49 Temperature Pulse Rate 71 45 L Respiratory Rate 22 23 Blood Pressure 131/62 Pulse Oximetry Oxygen Delivery Method 11/02/23 12:00 11/02/23 12:00 Temperature Pulse Rate 69 Respiratory Rate 19 Blood Pressure 132/67 Pulse Oximetry 95 Oxygen Delivery Method MDM - Back Pain/Injury Lab Data 11/02/23 09:10 11/02/23 09:10 Labs: Lab Results 11/02/23 11/02/23 11/02/23 Range/Units 09:10 11:10 11:30 WBC 5.6 (4.5-11.0) X10^3/uL RBC 4.53 (4.5-5.9) X10^6/uL Hgb 13.4 L (13.5-17.5) g/dL Hct 41.5 (41-53) % MCV 91.6 (80-100) fL MCH 29.6 (26-34) PG MCHC 32.4 (30-36) % RDW 15.6 H (11.6-14.8) % Plt Count 157 (150-400) X10^3/uL Neut % (Auto) 78.5 H (50-75) % Lymph % (Auto) 9.8 L (25-40) % Mclennan % (Auto) 10.7 (3-14) % Eos % (Auto) 0.3 L (2-4) % Baso % (Auto) 0.7 (0-2) % Neut # (Auto) 4400 (4451-6168) /uL Lymph # (Auto) 600 L (4631-6338) /uL Mclennan # (Auto) 600 (0-900) /uL Eos # (Auto) 0 (0-450) /uL Baso # (Auto) 0 (0-100) /uL PT 25.0 H (9.4-12.5) SECONDS INR 2.2 H (0.9-1.3) APTT 44 H (25.1-36.5) SECONDS Sodium 140 (137-145) mmol/L Potassium 3.9 (3.4-5.1) mmol/L Chloride 103 (98-107) mmol/L Carbon Dioxide 29 (22-32) mmol/L BUN 49 H (9-20) mg/dL Creatinine 1.23 (0.66-1.25) mg/dL Estimated GFR 58 L (>60) mL/min BUN/Creatinine Ratio 39.8 H (6-22) Glucose 112 H (80-110) mg/dL Calcium 9.6 (8.4-10.2) mg/dL Magnesium 2.2 (1.6-2.3) mg/dL Total Bilirubin 1.1 (0.2-1.3) mg/dL AST 37 (17-59) IU/L ALT 22 (<50) IU/L Alkaline Phosphatase 132 H (38-126) U/L Total Creatine Kinase 39 L (55-170) U/L Troponin I 0.053 H 0.045 H (0.01-0.034) ng/mL NT-Pro-B Natriuret Pep 67923 H (<450) pg/mL Total Protein 7.9 (6.3-8.2) g/dL Albumin 4.3 (3.5-5.0) g/dL Globulin 3.6 (1.7-4.1) g/dL Albumin/Globulin Ratio 1.2 (1.0-2.8) Lipase 168 (23-300) U/L Urine RBC 1-5/hpf (0-5/HPF) Urine WBC None seen (0-5/HPF) Ur Squamous Epith Cells 0-1 /hpf (0-5/HPF) Urine Bacteria None seen (None) Ur Culture Indicated? Cult not indicated Vol Urine Centrifuged 10ml (spun) Urine Dip Bedside Urine Glucose Negative Bedside Urine Bilirubin - Negative Bedside Urine Ketone - Negative Urine Specific [place] 1.020 Bedside Urine Occult Blood + Bedside Urine pH 6.0 Bedside Urine Protein + 30 Bedside Urine Urobilinogen - Negative Bedside Urine Nitrite - Negative Bedside Urine Leukocytes - Negative Esterase Imaging Data Chest x-ray: Radiologist's Impression: Close Lumbar Spine CT 11/02/23 Chest X-Ray (Signed) Randy Rodriguez - 11/02/23 Echocardiogram Ultrasound (Signed) Cecelia Nieto - 10/24/23 Chest X-Ray (Signed) Jacki Staley - 10/11/23 Chest X-Ray (Signed) Anita Roca - 06/08/23 Chest X-Ray (Signed) Pranay Rios - 12/29/22 Chest X-Ray (Cancelled) 12/29/22 Chest/Abdomen/Pelvis CT (Signed) MauroVipul - 12/24/22 Echocardiogram Ultrasound (Signed) Cecelia Nieto - 05/25/22 Outside DI 05/11/22 Chest X-Ray (Signed) Jose Guadalupe García - 04/03/22 Chest/Abdomen/Pelvis CT (Signed) RodriguezCriseldaCandido - 03/10/22 Radiology Report (Cancelled) Robe Kaplan - 11/05/21 Myocardial Perfusion Scan Nuc Med (Signed) Megha Kaplanu - 11/05/21 Echocardiogram Ultrasound (Addendum) Aixa Gordon - 01/26/21 Launch?[address] [address] XRay Report Signed Patient: Gerry Bronson MR#: [id number] : 1940 Acct:[id number] Age/Sex: 83 / M Date of Service: 11/02/23 Loc: ED Accession Number: [id number] Procedure: XR chest 1V Ordering Provider: Phyllis Goode D.O. PROCEDURE: XR CHEST 1V INDICATIONS: chest pain TECHNIQUE: One view of the chest was acquired. COMPARISON: [facility], , XR CHEST 2V, 10/11/2023, 10:41. FINDINGS: Surgical changes and devices: Pacemaker Lungs and pleura: Lungs are clear. Small left pleural effusion. Mediastinum: Mediastinal contours appear normal. Cardiomegaly, as before. Bones and chest wall: No suspicious bony lesions. Overlying soft tissues appear unremarkable. IMPRESSION: Cardiomegaly, as before. Small left pleural effusion. No pulmonary edema. Dictated by: Randy Rodriguez M.D. on 11/02/2023 at 9:29 Approved by: Randy Rodriguez M.D. on 11/02/2023 at 9:[address]: Radiologist's Impression: Close Lumbar Spine CT (Signed) Randy Rodriguez - 11/02/23 Chest X-Ray (Signed) Randy Rodriguez - 11/02/23 Launch?[address] [address] [address] Scan Report Signed Patient: Gerry Bronson MR#: [id number] : 1940 Acct:[id number] Age/Sex: 83 / M Date of Service: 11/02/23 Loc: ED Accession Number: [id number] Procedure: CT lumbar spine wo con Ordering Provider: Phyllis Goode D.O. PROCEDURE: CT LUMBAR SPINE WO CON INDICATIONS: low back pain, no trauma but hx radiation TECHNIQUE: Noncontrast 3 mm thick sections acquired from the T12 level to the sacrum. Sagittal and coronal reformats were constructed. For radiation dose reduction, the following was used: automated exposure control. COMPARISON: [facility], CR, XR CHEST 1V, 11/02/2023, 9:13. [facility], CT, CT CHEST ABD PEL W CON, 12/24/2022, 11:12. FINDINGS: Image quality: Excellent. Bones: There is normal bony alignment. No acute vertebral body compression fractures. At the posterior inferior aspect of the L5 vertebral body, there is a area of cortical loss and lucency which was previously present. It is stable. There was previously associated disc protrusion which is no longer identified. Additionally, there are new lucencies along the inferior endplate which are most compatible with discogenic change and not lytic destructive neoplasm. There is interval development of a similar lucency in the posterior inferior aspect of the L3 vertebral body which is also subjacent to the disc, and most likely represents a new Schmorl's node with cortical loss. No lesions are noted in the lumbar spine which are highly suspicious of malignancy. No pars defects. There is multilevel degenerative change with lower lumbar facet arthropathy. There is mild canal stenosis at L3-L4. There is no foraminal stenosis. Soft tissues: No retroperitoneal masses or hematomas. Visualized aorta is normal in caliber. Bilateral pleural effusions, cardiomegaly. IMPRESSION: 1. There are areas of lucency in the posterior inferior aspects of L3 and L5. Additionally, there are lucencies along the inferior endplate of L5. These are most likely benign lucencies relative to discogenic change. No areas are highly suspicious for metastatic disease to the lumbar spine. 2. Mild canal stenosis at L3-L4. 3. No acute bony abnormality. 4. Cardiomegaly, bilateral pleural effusions. Dictated by: Randy Rodriguez M.D. on 11/02/2023 at 11:26 Approved by: Randy Rodriguez M.D. on 11/02/2023 at 11:33 ECG Data Attestation: I personally reviewed and interpreted this ECG as follows: Interpretation: Occasional paced beats atrial fibrillation rate of 94 QRS of 164 QTC of 572. MDM Narrative Medical decision making narrative: 83-year-old male with complaint of acute on chronic back pain but also increased shortness of breath who recently stopped his torsemide took 1 extra dose of Lasix on Tuesday but has been off with increasing shortness of breath as well. Patient has had chronic back issues in the past he did have radiation to his abdomen in the past. Plan for CT L-spine to rule out compression fractures or other significant changes he does not have any red flag symptoms necessitating MRI although he has a pacemaker so that would not be available at our facility. Labs to evaluate for CHF or cardiac source. WBC is 5.6 hemoglobin of 13 platelets of 157. Sodium of 140 potassium 3 9 chloride of 103 CO2 of 29 BUN 49 creatinine 1.23 glucose of 112 normal LFTs except for an alk-phos of 132 CK of 39, troponin 0.053 and was repeated and is slightly lower at 0.045 BNP is was 16,000 in September. EKG shows occasionally paced rhythm that appears to be AFib consistent with the exam findings. Chest x-ray shows cardiomegaly, left pleural effusion. Pulmonary edema. Patient's low back pain is likely related to his chronic issues, they are some lucencies but no clear metastatic malignancy type changes per report. Patient does have some mild canal stenosis at L3-L4 cardiomegaly with bilateral pleural effusions but otherwise stable. Can certainly be causing his back pain. He does appear to be in acute on chronic CHF but this is more likely secondary to stopping his medications as he thought they might be related to back pain. Stopping them has not helped his pain. Patient was given a dose of Lasix here. Offered stronger pain medications but he had deferred. Discussed with patient plan for DC home to restart his torsemide to continue this with oral narcotic pain medication can use lidocaine patch if that is helpful and follow up with primary care for his back and Cardiology for his heart. Patient states lidocaine patches he probably would not be able to get on himself and he has help but not regularly. We will do a short course of pain medication he is certainly ambivalent about any narcotics but offered a prescription just in case. He has been able to get up to the bedside commode here in the department. Plan to restart his torsemide as well as his losartan. Patient feels comfortable with this plan vitals have overall been appropriate no hypoxia. Encouraged patient to follow up with his cardiology appointment tomorrow. Discharge Plan Departure Patient Disposition: Home Clinical Impression: Acute on chronic congestive heart failure, Acute exacerbation of chronic low back pain Activity Restrictions/Additional Instructions: Follow up with primary care for your primary care. Also included as contact for pain management/interventional they maybe helpful for your back pain. Please call the included number to set up follow up. Please follow up with Cardiology for your heart. Please restart your torsemide, this will help with your breathing. Also restart your losartan. You can take Tylenol up to a 1000 mg every 6 hours as needed for pain. If in adequate you can take oxycodone 1-2 tablets every 6 hours as needed. This medication can make you sleepy do not drive, perform hazardous activities or make any major decisions while taking it. This medication will make you constipated please take a stool softener once to twice daily until stools are soft and regular. Prescription sent to [facility] [place]. Please return for new or worsening symptoms, new numbness, weakness, loss of sensation loss of bowel or bladder control, increasing chest pain or shortness of breath, fevers, lightheadedness or passing out or other new or concerning changes. Prescriptions: New tramadol 50 mg tablet 50 mg PO Q6H PRN (Reason: pain) Qty: 10 0RF No Action furosemide 40 mg tablet See Rx Instructions .ROUTE .COMPLEX Qty: 30 3RF Dose Instruction: TAKE 1 TABLET BY MOUTH EVERY DAY. INCREASE FROM 20 MG TO 40 MG DAILY Rx Instructions: Pt currently taking 60 mg M,W,F, 40 mg X 4 days. TAKE 1 TABLET BY MOUTH EVERY DAY. INCREASE FROM 20 MG TO 40 MG DAILY Eliquis 5 mg tablet 5 mg PO BID metoprolol succinate 50 mg tablet extended release 24 hr 50 mg PO BID triamcinolone acetonide 0.1 % cream 1 applic topical BID Qty: 80 1RF acetaminophen [Tylenol] 325 mg Tablet 650 mg PO Q4H PRN (Reason: Pain (Scale Score 4-6)) cyclobenzaprine 10 mg tablet 10 mg PO TID PRN (Reason: muscle spasm) Qty: 20 0RF Referrals: Alcon Ortega DO [Physician] - Benigno Daily MD [Physician] - Jean More MD [Primary Care Provider] - Stand Alone Forms: Patient Portal/API
[2023-11-02 09:30] LABS: Add Manual Diff / Slide Review NO; Basophils Absolute Auto 0 /uL (0-100); Basophils Percent Auto 0.7 % (0-2); Eosinophils Absolute Auto 0 /uL (0-450); Eosinophils Percent Auto 0.3 % (2-4); Hematocrit 41.5 % (41-53); Hemoglobin 13.4 g/dL (13.5-17.5); Lymphocytes Absolute Auto 600 /uL (1100-4500); Lymphocytes Percent Auto 9.8 % (25-40); Mean Corpuscular HGB Conc 32.4 % (30-36); Mean Corpuscular Hemoglobin 29.6 PG (26-34); Mean Corpuscular Volume 91.6 fL (80-100); Monocytes Absolute Auto 600 /uL (0-900); Monocytes Percent Auto 10.7 % (3-14); Neutrophils Absolute Auto 4400 /uL (1500-7000); Neutrophils Percent Auto 78.5 % (50-75); Platelet Count 157 X10^3/uL (150-400); Red Blood Cell Count 4.53 X10^6/uL (4.5-5.9); Red Cell Distribution Width 15.6 % (11.6-14.8); White Blood Cell Count 5.6 X10^3/uL (4.5-11.0)
[2023-11-02 09:39] LABS: INR 2.2 (0.9-1.3)
[2023-11-02 09:41] LABS: PTT Partial Thromboplastin Tim 44 SECONDS (25.1-36.5)
[2023-11-02 09:45] LABS: Alanine Aminotransferase 22 IU/L (<50); Albumin 4.3 g/dL (3.5-5.0); Albumin Globulin Ratio 1.2 (1.0-2.8); Alkaline Phosphatase 132 U/L (38-126); Aspartate Aminotransferase 37 IU/L (17-59); BUN Creatinine Ratio 39.8 (6-22); Bilirubin Total 1.1 mg/dL (0.2-1.3); Blood Urea Nitrogen 49 mg/dL (9-20); Calcium 9.6 mg/dL (8.4-10.2); Carbon Dioxide 29 mmol/L (22-32); Chloride 103 mmol/L (98-107); Creatine Kinase 39 U/L (55-170); Estimated Glomerular Filt Rate 58 mL/min (>60); Globulin 3.6 g/dL (1.7-4.1); Glucose 112 mg/dL (80-110); HEMOLYSIS < 15 (0-50); Lipase 168 U/L (23-300); Magnesium 2.2 mg/dL (1.6-2.3); Potassium 3.9 mmol/L (3.4-5.1); Sodium 140 mmol/L (137-145); Total Protein 7.9 g/dL (6.3-8.2)
--- NOTE | 2023-11-02 09:46 | DI.CT.S_ITS ---
PROCEDURE: CT LUMBAR SPINE WO CON INDICATIONS: low back pain, no trauma but hx radiation TECHNIQUE: Noncontrast 3 mm thick sections acquired from the T12 level to the sacrum. Sagittal and coronal reformats were constructed. For radiation dose reduction, the following was used: automated exposure control. COMPARISON: [facility], CR, XR CHEST 1V, 11/02/2023, 9:13. [facility], CT, CT CHEST ABD PEL W CON, 12/24/2022, 11:12. FINDINGS: Image quality: Excellent. Bones: There is normal bony alignment. No acute vertebral body compression fractures. At the posterior inferior aspect of the L5 vertebral body, there is a area of cortical loss and lucency which was previously present. It is stable. There was previously associated disc protrusion which is no longer identified. Additionally, there are new lucencies along the inferior endplate which are most compatible with discogenic change and not lytic destructive neoplasm. There is interval development of a similar lucency in the posterior inferior aspect of the L3 vertebral body which is also subjacent to the disc, and most likely represents a new Schmorl's node with cortical loss. No lesions are noted in the lumbar spine which are highly suspicious of malignancy. No pars defects. There is multilevel degenerative change with lower lumbar facet arthropathy. There is mild canal stenosis at L3-L4. There is no foraminal stenosis. Soft tissues: No retroperitoneal masses or hematomas. Visualized aorta is normal in caliber. Bilateral pleural effusions, cardiomegaly. IMPRESSION: 1. There are areas of lucency in the posterior inferior aspects of L3 and L5. Additionally, there are lucencies along the inferior endplate of L5. These are most likely benign lucencies relative to discogenic change. No areas are highly suspicious for metastatic disease to the lumbar spine. 2. Mild canal stenosis at L3-L4. 3. No acute bony abnormality. 4. Cardiomegaly, bilateral pleural effusions. Dictated by: Randy Rodriguez M.D. on 11/02/2023 at 11:26 Approved by: Randy Rodriguez M.D. on 11/02/2023 at 11:33
[2023-11-02 09:55] LABS: NT-proBNP (BNP-Adult 18+) 19800 pg/mL (<450); Troponin I 0.053 ng/mL (0.01-0.034)
[2023-11-02] MEDS: FUROSEMIDE 40 MG/4 ML VIAL IV (10:42)
[2023-11-02 12:00] LABS: Urine Volume 10mL (spun)
[2023-11-02 12:02] LABS: Bacteria Urine None Seen; Culture Indicated Urine Cult Not Indicated; RBC Urine 1-5/HPF (0-5/HPF); Squamous Epithelial Cell Urine 0-1 /HPF (0-5/HPF); WBC Urine None Seen (0-5/HPF)
[2023-11-02 12:09] LABS: Troponin I 0.045 ng/mL (0.01-0.034)
== END 2023-11-02 13:32 | disposition home or self-care (01) ==
PROVIDERS: Emergency Provider Emergency Medicine; Family Provider Family Medicine; PCP Family Medicine
DX: I50.9 Heart failure, unspecified (principal); M54.50 Low back pain, unspecified; R07.9 Chest pain, unspecified; Z79.01 Long term (current) use of anticoagulants
CPT/HCPCS: 36415; 71045; 72131; 80053; 81003; 81015; 82550; 83690; 83735; 83880; 84484; 85025; 85610; 85730; 93005; 93010; 96374; 99284; J1940

== ENCOUNTER → 2023-11-24 13:02 | Outpatient (CLI) | payer MEDICARE, SELFPAY ==
--- NOTE | 2023-11-24 13:03 | DI.RAD.S_ITS ---
PROCEDURE: XR LUMBAR SPINE MIN 4V INDICATIONS: BACK PAIN TECHNIQUE: 5 views of the lumbar spine acquired, including bilateral oblique views. COMPARISON: [facility], CT, CT LUMBAR SPINE WO CON, 11/02/2023, 9:52. FINDINGS: Bones: 5 nonrib-bearing vertebrae are present. Mild dextroconvex curvature of the lumbar spine. 4 mm grade 1 retrolisthesis at L3-4 and L2-3. No vertebral body compression fractures. No suspicious bony lesions. Multilevel disc space narrowing degenerative endplate changes. Multilevel facet hypertrophy. Soft tissues: Overlying bowel gas pattern is normal. Aortic atherosclerotic calcifications. Obliques: No pars defects. IMPRESSION: Moderate multilevel spondylosis and degenerative spondylolisthesis. Approved by: Erasto Ritter M.D. on 11/24/2023 at 13:53
== END ==
PROVIDERS: Family Provider Family Medicine; PCP Family Medicine; Referring Provider Physical Medicine & Rehabilitation; Visit Provider Physical Medicine & Rehabilitation
DX: M47.816 Spondylosis without myelopathy or radiculopathy, lumbar region (principal); M43.16 Spondylolisthesis, lumbar region; M54.9 Dorsalgia, unspecified
CPT/HCPCS: 72110

== ENCOUNTER → 2023-12-27 10:01 | Outpatient (CLI) | payer MEDICARE, SELFPAY ==
[2023-12-27 10:38] LABS: Add Manual Diff / Slide Review NO; Basophils Absolute Auto 0 /uL (0-100); Basophils Percent Auto 0.8 % (0-2); Eosinophils Absolute Auto 0 /uL (0-450); Eosinophils Percent Auto 0.7 % (2-4); Hematocrit 38.6 % (41-53); Hemoglobin 12.6 g/dL (13.5-17.5); Lymphocytes Absolute Auto 1100 /uL (1100-4500); Lymphocytes Percent Auto 19.2 % (25-40); Mean Corpuscular HGB Conc 32.6 % (30-36); Mean Corpuscular Hemoglobin 30.4 PG (26-34); Mean Corpuscular Volume 93.3 fL (80-100); Monocytes Absolute Auto 700 /uL (0-900); Monocytes Percent Auto 11.9 % (3-14); Neutrophils Absolute Auto 3700 /uL (1500-7000); Neutrophils Percent Auto 67.4 % (50-75); Platelet Count 142 X10^3/uL (150-400); Red Blood Cell Count 4.14 X10^6/uL (4.5-5.9); Red Cell Distribution Width 17.7 % (11.6-14.8); White Blood Cell Count 5.5 X10^3/uL (4.5-11.0)
[2023-12-27 10:52] LABS: Hemoglobin A1C% w Est Avg Glu 6.2 % (4.0-6.0)
[2023-12-27 11:07] LABS: Alanine Aminotransferase 36 IU/L (<50); Albumin 4.4 g/dL (3.5-5.0); Albumin Globulin Ratio 1.2 (1.0-2.8); Alkaline Phosphatase 217 U/L (38-126); Aspartate Aminotransferase 56 IU/L (17-59); BUN Creatinine Ratio 29.6 (6-22); Bilirubin Total 1.5 mg/dL (0.2-1.3); Blood Urea Nitrogen 40 mg/dL (9-20); Carbon Dioxide 35 mmol/L (22-32); Chloride 97 mmol/L (98-107); Estimated Glomerular Filt Rate 52 mL/min (>60); Globulin 3.6 g/dL (1.7-4.1); Glucose 101 mg/dL (80-110); HEMOLYSIS < 15 (0-50); Potassium 3.6 mmol/L (3.4-5.1); Sodium 138 mmol/L (137-145)
[2023-12-27 11:36] LABS: TSH w/ Reflex to FT4 2.34 uIU/mL (0.47-4.68)
[2023-12-27 11:38] LABS: Prostate Specific Antigen Scrn 0.449 ng/mL (0.1-4.0)
[2023-12-28 04:12] LABS: Apolipoprotein B 36 mg/dL (<90)
== END ==
LOC: LAB 10:02
PROVIDERS: Family Provider Family Medicine; PCP Family Medicine; Referring Provider Internal Medicine Cardiovascular Disease; Visit Provider Internal Medicine Cardiovascular Disease
DX: Z12.5 Encounter for screening for malignant neoplasm of prostate (principal); I11.0 Hypertensive heart disease with heart failure; I50.22 Chronic systolic (congestive) heart failure; R73.09 Other abnormal glucose; E78.5 Hyperlipidemia, unspecified; E05.90 Thyrotoxicosis, unspecified without thyrotoxic crisis or storm
CPT/HCPCS: 36415; 80053; 82172; 83036; 84443; 85025; G0103

== ENCOUNTER → 2024-02-03 14:38 | Outpatient (CLI) | payer MEDICARE, SELFPAY ==
[2024-02-03 15:39] LABS: BUN Creatinine Ratio 34.6 (6-22); Blood Urea Nitrogen 46 mg/dL (9-20); Calcium 9.8 mg/dL (8.4-10.2); Carbon Dioxide 31 mmol/L (22-32); Chloride 98 mmol/L (98-107); Estimated Glomerular Filt Rate 53 mL/min (>60); Glucose 105 mg/dL (80-110); HEMOLYSIS < 15 (0-50); Potassium 4.3 mmol/L (3.4-5.1); Sodium 138 mmol/L (137-145)
[2024-02-03 15:40] LABS: Add Manual Diff / Slide Review NO; Basophils Absolute Auto 0 /uL (0-100); Basophils Percent Auto 0.4 % (0-2); Eosinophils Absolute Auto 0 /uL (0-450); Eosinophils Percent Auto 0.6 % (2-4); Hematocrit 34.9 % (41-53); Hemoglobin 11.2 g/dL (13.5-17.5); Lymphocytes Absolute Auto 1300 /uL (1100-4500); Lymphocytes Percent Auto 20.6 % (25-40); Mean Corpuscular HGB Conc 32.1 % (30-36); Mean Corpuscular Hemoglobin 30.3 PG (26-34); Mean Corpuscular Volume 94.2 fL (80-100); Monocytes Absolute Auto 800 /uL (0-900); Neutrophils Absolute Auto 4200 /uL (1500-7000); Neutrophils Percent Auto 65.4 % (50-75); Platelet Count 168 X10^3/uL (150-400); Red Blood Cell Count 3.71 X10^6/uL (4.5-5.9); Red Cell Distribution Width 17.7 % (11.6-14.8); White Blood Cell Count 6.4 X10^3/uL (4.5-11.0)
== END ==
PROVIDERS: Family Provider Family Medicine; PCP Family Medicine; Referring Provider Internal Medicine Cardiovascular Disease; Visit Provider Internal Medicine Cardiovascular Disease
DX: I42.0 Dilated cardiomyopathy (principal)
CPT/HCPCS: 36415; 80048; 85025

== ENCOUNTER → 2024-02-23 10:03 | Outpatient (CLI) | payer MEDICARE, SELFPAY ==
[2024-02-23 10:32] LABS: Estimated Glomerular Filt Rate 49 mL/min (>60)
== END ==
PROVIDERS: Family Provider Family Medicine; PCP Family Medicine; Referring Provider Radiology Diagnostic Radiology; Visit Provider Radiology Diagnostic Radiology
DX: C44.42 Squamous cell carcinoma of skin of scalp and neck (principal)
CPT/HCPCS: 36415; 82565

== ENCOUNTER → 2024-02-24 10:01 | Outpatient (CLI) | payer MEDICARE, SELFPAY ==
--- NOTE | 2024-02-24 10:03 | DI.CT.S_ITS ---
PROCEDURE: CT HEAD/BRAIN WO/W CON INDICATIONS: EVAL FOR BONY INVASION LT CENTRAL FRONTAL SCALP TECHNIQUE: 4.5 mm thick angled axial sections acquired from the foramen magnum to the vertex both before and after the administration of intravenous contrast, with coronal and sagittal reformats. For radiation dose reduction, the following was used: automated exposure control, adjustment of mA and/or kV according to patient size. COMPARISON: None. FINDINGS: Image quality: Excellent. CSF spaces: Basal cisterns are patent. No extra-axial fluid collections. Ventricles are symmetric in size and shape. Brain: No midline shift. No intracranial bleeds or masses. No abnormal intracranial enhancement. There is cerebral volume loss for age. There is periventricular white matter chronic small vessel ischemic change. There is intracranial internal carotid artery atherosclerosis. Skull and face: Lesion within the left frontal scalp near the vertex measuring 2.3 x 2.4 x 1.0 cm (TV by AP by cc). There is no evidence of invasion into the calvarium. Calvarium and visualized facial bones appear intact, without suspicious lesions. Sinuses: Visualized sinuses and mastoids are clear. IMPRESSION: Left frontal scalp lesion measuring up to 2.4 cm. No evidence of osseous invasion. Dictated by: Jerod Mills M.D. on 02/24/2024 at 12:06 Approved by: Jerod Mills M.D. on 02/24/2024 at 12:11
== END ==
PROVIDERS: Family Provider Family Medicine; PCP Family Medicine; Referring Provider Dermatology; Visit Provider Dermatology
DX: C44.42 Squamous cell carcinoma of skin of scalp and neck (principal); I65.29 Occlusion and stenosis of unspecified carotid artery; L98.9 Disorder of the skin and subcutaneous tissue, unspecified
CPT/HCPCS: 70470; Q9967

== ENCOUNTER 2024-04-20 10:41 | Emergency (ER) | payer MEDICARE, SELFPAY ==
[2024-04-20] VITALS (46 sets, daily range): BP systolic 86–112; BP diastolic 46–86; PULSE 69–106; RESP 16–40; TEMP 36.4; O2SAT 87–96
--- NOTE | 2024-04-20 11:01 | DI.US.S_ITS ---
PROCEDURE: US PERIPH VENOUS LOW EXTREM BI INDICATIONS: Leg swelling TECHNIQUE: Real-time imaging, as well as color and pulse Doppler interrogation, were performed of the deep veins of both legs from the inguinal ligament to the popliteal fossa, with documentation of the visualized calf veins. COMPARISON: None. FINDINGS: Right: The common femoral, femoral, popliteal, and the visualized calf veins are normally compressible, and free of intraluminal thrombus. Color and pulse Doppler demonstrate normal phasic intravascular flow. There is normal augmentation response to distal compression maneuver. Left: The common femoral, femoral, popliteal, and the visualized calf veins are normally compressible, and free of intraluminal thrombus. Color and pulse Doppler demonstrate normal phasic intravascular flow. There is normal augmentation response to distal compression maneuver. Diffuse edema throughout bilateral lower extremity. Limited evaluation of bilateral lower extremity arteries shows decreased peak systolic velocity and monophasic flow within right posterior tibial artery and anterior tibial artery with [id number] amount of atherosclerotic plaque. Normal velocity and biphasic flow is seen left posterior tibial artery and anterior tibial artery with moderate amount of atherosclerotic plaque. IMPRESSION: 1. No findings of deep venous thrombosis in either lower extremity. 2. Finding is suggestive of bilateral lower extremity peripheral vascular disease with hemodynamically significant stenosis involving right lower extremity arteries at the level above the right popliteal artery. Dictated by: Candido Rodriguez M.D. on 04/20/2024 at 13:05 Approved by: Candido Rodriguez M.D. on 04/20/2024 at 13:08
--- NOTE | 2024-04-20 11:02 | EKG_ITS ---
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
--- NOTE | 2024-04-20 11:03 | ED_ITS ---
HPI - SOB/Dyspnea General Chief Complaint: Shortness of Breath/Dyspnea Stated Complaint: SOB, Dizzy, Edema Time Seen by Provider: 04/20/24 10:55 Source: patient Mode of arrival: EMS Limitations: no limitations History of Present Illness HPI Narrative: Patient brought in by ambulance from home. Patient lives alone. Has not had any visitors for over 1 week. Family has not seen him in over 1 week. Has history of CHF. Sees primary care doctor shlomo, cardio dr davis. Has history of CHF according to EMS. Has had shortness of breath and leg swelling and blistering of the legs. Patient denies any fall or injury. Patient is on Eliquis. As well as metoprolol losartan torsemide. Patient does have history of atrial fibrillation. Related Data Allergies Allergy/AdvReac Type Severity Reaction Status Date / Time [place] nut Allergy Severe Swollen Verified 04/20/24 10:48 lips, contristed throat. Review of Systems Review of Systems Narrative: GENERAL: negative chills, fatigue, malaise, fever, sweats. HEENT: negative sinus pain, ear pain, sore throat RESPIRATORY: Positive dyspnea, negative cough CARDIOVASCULAR: negative chest pain, palpitations, positive peripheral edema GASTROINTESTINAL: negative nausea, vomiting, abdominal pain : negative dysuria, frequency, hematuria MUSCULOSKELETAL: negative muscle or bony pain SKIN: negative rash, skin lesions NEUROLOGIC: negative weakness, numbness ROS Unobtainable: All systems reviewed & are unremarkable except as noted in HPI and below Patient History Medical History Other thrombophilia Secondary hyperaldosteronism Rectal cancer Lumbar adjacent segment disease with spondylolisthesis Lumbar radiculopathy Acute low back pain with possible spinal stenosis of less than six weeks' duration Hyperthyroidism Neoplasm of uncertain behavior of skin Actinic keratosis Hyperlipidemia Hypertension Atrial fibrillation CKD (chronic kidney disease) stage 3, GFR 30-59 ml/min Surgical History No pertinent past surgical history Family History Father Cancer Mother Heart problem Family/Other Pacemaker Social History household members: none Smoking Status: Former smoker alcohol intake: current Smoking Status: Former smoker alcohol intake frequency: holidays/special occasions only Substance Use Type: does not use Exam Narrative Exam Narrative: GENERAL: in no distress, not toxic not dyspneic HEAD: Normocephalic. EYES: Pupils equal round ENT: Mucous membranes moist. NECK: Trachea midline. CARDIOVASCULAR: Regular rate and rhythm RESPIRATORY: Clear to auscultation. Breath sounds equal bilaterally. Speaking full sentences but there are bibasilar rales GASTROINTESTINAL: Abdomen soft, non-tender EXTREMITIES: No gross deformities. Bilateral symmetric leg ankle and foot edema. There is diffuse scattered erythema but no palpable cords. There is some blistering of the skin, there is some cyanotic discoloration of the hands and forearms but it is warm to touch. Strong radial pulses and sensation intact to bilateral hands and fingers BACK: No flank tenderness. NEURO: AOx4. Clear speech SKIN: Warm and dry PSYCH: Not anxious, is cooperative Initial Vital Signs Initial Vital Signs: Vital Signs Temperature 97.5 F L 04/20/24 10:41 Pulse Rate 73 04/20/24 10:41 Respiratory Rate 20 04/20/24 10:41 Blood Pressure 88/62 L 04/20/24 10:41 Pulse Oximetry 95 04/20/24 10:41 Oxygen Delivery Method Room Air 04/20/24 10:41 Course Orders Ordered: Discontinued Medications Acetaminophen (Acetaminophen 325 Mg Tablet) 650 mg PO NOW ONE Stop: 04/20/24 19:24 Last Admin: 04/20/24 19:27 Dose: 650 mg Documented By: RAMÍREZ Furosemide (Furosemide 40 Mg/4 Ml Vial) 20 mg IV NOW ONE Stop: 04/20/24 16:06 Last Admin: 04/20/24 16:49 Dose: 20 mg Documented By: JUVE Furosemide 60 mg/ Sodium (Chloride) 56 mls @ 112 mls/hr IV NOW ONE Stop: 04/20/24 12:49 Last Infusion: 04/20/24 14:17 Dose: Infused Documented By: Admin: 04/20/24 13:19 Dose: 112 mls/hr Documented By: [facility] Vital Signs Vital signs: Vital Signs - 8 hr 04/20/24 10:41 04/20/24 10:45 04/20/24 10:46 Temperature 97.5 F L Pulse Rate 73 70 Respiratory Rate 20 Blood Pressure 88/62 L 88/62 L Pulse Oximetry 95 90 L Oxygen Delivery Method Room Air Room Air 04/20/24 10:46 04/20/24 11:00 04/20/24 11:01 Temperature Pulse Rate 72 79 Respiratory Rate 18 Blood Pressure 101/48 L Pulse Oximetry Oxygen Delivery Method 04/20/24 11:01 04/20/24 11:10 04/20/24 11:10 Temperature Pulse Rate 69 69 Respiratory Rate 18 18 Blood Pressure 86/49 L Pulse Oximetry 90 L Oxygen Delivery Method 04/20/24 11:18 04/20/24 11:18 04/20/24 11:30 Temperature Pulse Rate 81 Respiratory Rate 21 20 Blood Pressure 96/46 L Pulse Oximetry Oxygen Delivery Method 04/20/24 11:40 04/20/24 11:40 04/20/24 12:00 Temperature Pulse Rate 69 Respiratory Rate 20 Blood Pressure 90/54 L 105/55 L Pulse Oximetry Oxygen Delivery Method 04/20/24 12:00 04/20/24 12:20 04/20/24 12:20 Temperature Pulse Rate 69 106 H Respiratory Rate 23 25 H Blood Pressure 98/51 L Pulse Oximetry Oxygen Delivery Method 04/20/24 12:30 04/20/24 12:40 04/20/24 12:40 Temperature Pulse Rate 69 69 Respiratory Rate 33 H 24 Blood Pressure 99/52 L Pulse Oximetry Oxygen Delivery Method 04/20/24 13:05 04/20/24 13:30 04/20/24 14:00 Temperature Pulse Rate 69 70 69 Respiratory Rate 26 H 16 Blood Pressure Pulse Oximetry 87 L Oxygen Delivery Method 04/20/24 14:13 04/20/24 14:13 04/20/24 14:21 Temperature Pulse Rate 69 Respiratory Rate 18 Blood Pressure 88/50 L 88/49 L Pulse Oximetry Oxygen Delivery Method 04/20/24 14:21 04/20/24 14:30 04/20/24 14:40 Temperature Pulse Rate 69 69 69 Respiratory Rate 20 19 20 Blood Pressure Pulse Oximetry Oxygen Delivery Method 04/20/24 14:40 04/20/24 15:00 04/20/24 15:00 Temperature Pulse Rate 69 Respiratory Rate 17 Blood Pressure 103/56 L 94/58 L Pulse Oximetry Oxygen Delivery Method 04/20/24 15:20 04/20/24 15:20 Temperature Pulse Rate 69 Respiratory Rate 17 Blood Pressure 94/50 L Pulse Oximetry Oxygen Delivery Method [facility]/Dyspnea Lab Data 04/20/24 11:25 04/20/24 11:25 Labs: Lab Results 04/20/24 04/20/24 Range/Units 11:25 12:40 WBC 6.2 (4.5-11.0) X10^3/uL RBC 3.54 L (4.5-5.9) X10^6/uL Hgb 10.3 L (13.5-17.5) g/dL Hct 32.9 L (41-53) % MCV 92.8 (80-100) fL MCH 29.1 (26-34) PG MCHC 31.4 (30-36) % RDW 17.0 H (11.6-14.8) % Plt Count 85 L (150-400) X10^3/uL Neut % (Auto) 87.6 H (50-75) % Lymph % (Auto) 3.3 L (25-40) % [place] % (Auto) 8.3 (3-14) % Eos % (Auto) 0.0 L (2-4) % Baso % (Auto) 0.8 (0-2) % Neut # (Auto) 5400 (4832-8851) /uL Lymph # (Auto) 200 L (7078-0182) /uL [place] # (Auto) 500 (0-900) /uL Eos # (Auto) 0 (0-450) /uL Baso # (Auto) 100 (0-100) /uL PT 34.1 H (9.4-12.5) SECONDS INR 2.9 H (0.9-1.3) APTT 49 H (25.1-36.5) SECONDS ABG Sample Site Right radial ABG pH 7.30 L (7.35-7.45) ABG pCO2 50.6 H (35-45) mmHg ABG pO2 85 (80-100) mmHg ABG HCO3 25 (23-27) mmol/L ABG Total CO2 25 (23-27) mmol/L ABG O2 Saturation 95 (95-100) % ABG Base Excess -1.7 (-2-3) mmol/L Marco Antonio Test Positive O2 Delivery Device Ra FiO2 % 21 % % Sodium 134 L (137-145) mmol/L Potassium 4.8 (3.4-5.1) mmol/L Chloride 97 L (98-107) mmol/L Carbon Dioxide 26 (22-32) mmol/L BUN 87 H (9-20) mg/dL Creatinine 3.31 H (0.66-1.25) mg/dL Estimated GFR 18 L (>60) mL/min BUN/Creatinine Ratio 26.3 H (6-22) Glucose 109 (80-110) mg/dL Lactate 1.5 (0.7-2.1) mmol/L Calcium 8.7 (8.4-10.2) mg/dL Total Bilirubin 1.0 (0.2-1.3) mg/dL AST 60 H (17-59) IU/L ALT 33 (<50) IU/L Alkaline Phosphatase 190 H (38-126) U/L Total Creatine Kinase 260 H (55-170) U/L Troponin I 0.171 H* (0.01-0.034) ng/mL NT-Pro-B Natriuret Pep 86935 H (<450) pg/mL Total Protein 6.7 (6.3-8.2) g/dL Albumin 3.5 (3.5-5.0) g/dL Globulin 3.2 (1.7-4.1) g/dL Albumin/Globulin Ratio 1.1 (1.0-2.8) Procalcitonin 0.656 H (<0.5) ng/mL Imaging Data Chest x-ray: Radiologist's Impression: [address] [address] XRay Report Signed Patient: Gerry Bronson MR#: [id number] : 1940 Acct:[id number] Age/Sex: 84 / M Date of Service: 04/20/24 Loc: ED Accession Number: [id number] Procedure: XR chest 1V Ordering Provider: Dario Chambers MD PROCEDURE: XR CHEST 1V INDICATIONS: Dyspnea TECHNIQUE: One view of the chest was acquired. COMPARISON: None FINDINGS: Surgical changes and devices: Pacemaker Lungs and pleura: Minimal bibasilar atelectasis. Minimal left pleural effusion. Mediastinum: Mediastinal contours appear normal. Mild cardiomegaly. Bones and chest wall: No suspicious bony lesions. Overlying soft tissues appear unremarkable. IMPRESSION: Mild cardiomegaly. Minimal bibasilar atelectasis. Minimal left pleural effusion. Dictated by: Randy Rodriguez M.D. on 04/20/2024 at 11:40 Approved by: Randy Rodriguez M.D. on 04/20/2024 at 11:44 [facility] Narrative Medical decision making narrative: Patient brought in by ambulance from home. Patient lives alone. Has not had any visitors for over 1 week. Family has not seen him in over 1 week. Has history of CHF. Sees primary care doctor shlomo, cardio dr davis. Has history of CHF according to EMS. Has had shortness of breath and leg swelling and blistering of the legs. Patient denies any fall or injury. Patient is on Eliquis. As well as metoprolol losartan torsemide. Patient does have history of atrial fibrillation. After history and exam CBC CMP BNP EKG chest x-ray ultrasound legs lactic acid procalcitonin blood culture likely admit [facility] Medical records reviewed: No recent visit for this complaint Differential considered: Includes but not limited to sepsis cellulitis DVT SVT CHF exacerbation Lab Test results independently reviewed as above. Pertinent findings: WBC 6.2 hemoglobin 10.3 INR 2.9 ABG pH 7.3 pCO2 50 PO2 85 patient on room air sodium 134 potassium 4.8 BUN 87 creatinine 3.31 GFR 18 troponin 0.171 BNP 89032 procalcitonin 0.656 Independently reviewed EKG atrial fibrillation artifact noted, paced rhythm is noted. Similar appearance EKG November 02, 2023 at 8:57 a.m. Imaging studies independently reviewed: Chest x-ray no acute finding, ultrasound bilateral legs no DVT Consultations: 12:45 p.m.. Spoke with Cardiology Dr. Rodriguez, this is not a non- STEMI. No heparin indicated time however recommends transfer to [facility] and give Lasix 80 mg now. We will need renal consult. 1:27 p.m.. Spoke with Nephrology with [facility], Dr. Singh, agrees patient should get Lasix 80 mg every 12 hours. He will follow in consult 4:15 p.m.. Spoke with [facility], hospitalist, Dr. Merrill, she will accept patient Treatments: Lasix Re-evaluations: 12:50 p.m.. Updated patient results and he does understand need for higher level of care transfer to [facility] for Nephrology and Cardiology Discussion: Appropriate for transfer higher level of care we do not have Nephrology here. Patient remained stable. Diagnosis: CHF exacerbation, acute renal injury Discharge Plan Departure Patient Disposition: [facility] Clinical Impression: Dyspnea due to congestive heart failure, Acute kidney injury Referrals: Jean More MD [Primary Care Provider] -
--- NOTE | 2024-04-20 11:30 | PC.NURSE ---
Pt states over the weekend he was taking a double dose of diuretics (total 40mg daily) due to increased SOB. Bilateral lower extremity edema with erythema and weeping. Left hand severely swollen like a baseball glove the past couple of weeks. Pt reports hands are not causing pain. States his legs hurt with weeping and thighs hurt when standing. More difficult to get around at his house. he lives at home alone and holds onto counter tops to ambulate.
[2024-04-20 11:37] LABS: Add Manual Diff / Slide Review NO; Basophils Absolute Auto 100 /uL (0-100); Basophils Percent Auto 0.8 % (0-2); Eosinophils Absolute Auto 0 /uL (0-450); Hematocrit 32.9 % (41-53); Hemoglobin 10.3 g/dL (13.5-17.5); Lymphocytes Absolute Auto 200 /uL (1100-4500); Lymphocytes Percent Auto 3.3 % (25-40); Mean Corpuscular HGB Conc 31.4 % (30-36); Mean Corpuscular Hemoglobin 29.1 PG (26-34); Mean Corpuscular Volume 92.8 fL (80-100); Monocytes Absolute Auto 500 /uL (0-900); Monocytes Percent Auto 8.3 % (3-14); Neutrophils Absolute Auto 5400 /uL (1500-7000); Neutrophils Percent Auto 87.6 % (50-75); Platelet Count 85 X10^3/uL (150-400); Red Blood Cell Count 3.54 X10^6/uL (4.5-5.9); White Blood Cell Count 6.2 X10^3/uL (4.5-11.0)
[2024-04-20 11:48] LABS: Lactate (Lactic Acid) 1.5 mmol/L (0.7-2.1)
[2024-04-20 11:50] LABS: Alanine Aminotransferase 33 IU/L (<50); Albumin 3.5 g/dL (3.5-5.0); Albumin Globulin Ratio 1.1 (1.0-2.8); Alkaline Phosphatase 190 U/L (38-126); Aspartate Aminotransferase 60 IU/L (17-59); BUN Creatinine Ratio 26.3 (6-22); Blood Urea Nitrogen 87 mg/dL (9-20); Calcium 8.7 mg/dL (8.4-10.2); Carbon Dioxide 26 mmol/L (22-32); Chloride 97 mmol/L (98-107); Creatine Kinase 260 U/L (55-170); Estimated Glomerular Filt Rate 18 mL/min (>60); Globulin 3.2 g/dL (1.7-4.1); Glucose 109 mg/dL (80-110); HEMOLYSIS < 15 (0-50); Potassium 4.8 mmol/L (3.4-5.1); Sodium 134 mmol/L (137-145); Total Protein 6.7 g/dL (6.3-8.2)
[2024-04-20 11:51] LABS: INR 2.9 (0.9-1.3); Prothrombin Time 34.1 SECONDS (9.4-12.5)
[2024-04-20 11:58] LABS: PTT Partial Thromboplastin Tim 49 SECONDS (25.1-36.5)
[2024-04-20 12:01] LABS: NT-proBNP (BNP-Adult 18+) 10300 pg/mL (<450)
[2024-04-20 12:02] LABS: Troponin I 0.171 ng/mL (0.01-0.034)
[2024-04-20 12:06] LABS: Procalcitonin 0.656 ng/mL (<0.5)
[2024-04-20 12:44] LABS: Allen Test for ABG Passed? Positive; Base Excess ABG -1.7 mmol/L (-2-3); Blood Gas Collection Site Right Radial; Delivery System RA; HCO3 ABG 25 mmol/L (23-27); Oxygen Saturation ABG 95 % (95-100); PCO2 ABG 50.6 mmHg (35-45); PO2 ABG 85 mmHg (80-100); TCO2 ABG 25 mmol/L (23-27)
[2024-04-20] MEDS: FUROSEMIDE 60 MG in SODIUM CHLORIDE 0.9% 50 ML 112 MG IV (13:19)
--- NOTE | 2024-04-20 13:56 | PC.NURSE ---
Hospital Call List for Patient Transfer [id number]: [facility], spoke with Brielle. Patient on wait list. Pages Dr. Smith for Nephrology and paged Dr. Kaplan for Cardiology.
--- NOTE | 2024-04-20 15:11 | PC.NURSE ---
Pt reports some pain (bilateral legs) and usually takes tylenol. He did take tylenol this morning and denies needing any other pain medication at this time.
[2024-04-20] MEDS: FUROSEMIDE 40 MG/4 ML VIAL 20 MG IV (16:49)
--- NOTE | 2024-04-20 16:50 | PC.NURSE ---
Talked wit provider regarding pt taking 40mg turosemide this morning and was administered an additional 60mg IV furosemide in ER. Provider states ok to give additional 20mg IV furosemide.
[2024-04-20] MEDS: ACETAMINOPHEN 325 MG TABLET 650 MG PO (19:27)
== END 2024-04-20 19:37 | disposition short-term general hospital (02) ==
PROVIDERS: Emergency Provider Emergency Medicine; Family Provider Family Medicine; PCP Family Medicine
DX: I50.9 Heart failure, unspecified (principal); R06.00 Dyspnea, unspecified; N17.9 Acute kidney failure, unspecified; R60.0 Localized edema; I51.7 Cardiomegaly; J90 Pleural effusion, not elsewhere classified; I48.20 Chronic atrial fibrillation, unspecified; Z79.01 Long term (current) use of anticoagulants; Z95.0 Presence of cardiac pacemaker
CPT/HCPCS: 36415; 36600; 51798; 71045; 80053; 82550; 82805; 83605; 83880; 84145; 84484; 85025; 85610; 85730; 87040; 93005; 93970; 96365; 96375; 99284; J1940